=== PATIENT | female | born 1995 | race Caucasian/White ===

== ENCOUNTER 2024-07-11 12:54 | Emergency (ER) | payer BC, SELFPAY ==
[2024-07-11 13:31] VITALS: BP 128/81; PULSE 90; RESP 18; TEMP 37.1
[2024-07-11 14:33] LABS: Influenza A QL RT-PCR Positive (Negative); Influenza B QL RT-PCR Negative (Negative); RSV RNA, RT-PCR Negative (Negative); SARS-CoV-2 RNA PCR Negative (Negative)
--- NOTE | 2024-07-11 14:57 | ED_ITS ---
HPI - URI/Sore Throat General Chief Complaint: Upper Respiratory Infection Stated Complaint: Cough, dizziness, CP with cough Time Seen by Provider: 07/11/24 15:47 History of Present Illness HPI Narrative: Patient is a 29-year-old female who presents to the ER with complaints of sore throat, cough, body aches, rib cage pain, and intermittent wheezing. She reports her mother was here 3 days ago for evaluation and was also diagnosed with influenza A. Patient denies any medical history related to this ER visit. She denies any issues with urinating or constipation. Patient denies any back pain, abdominal pain, or cardiac concerns. Related Data Allergies Allergy/AdvReac Type Severity Reaction Status Date / Time No Known Allergies Allergy Verified 07/11/24 15:28 Review of Systems Review of Systems: All systems reviewed & are unremarkable except as noted in HPI and below Exam Narrative: GENERAL: Well appearing, well-nourished, non-toxic, in no acute distress. HEAD: Normocephalic, atraumatic. NECK: Supple. No adenopathy, no masses. RESPIRATORY: Airway patent, respirations nonlabored. Clear to auscultation bilaterally, no rales, rhonchi, wheezing. CARDIOVASCULAR: Regular rate and rhythm without murmurs, rubs, or gallops. Peripheral pulses 2+ and equal bilaterally. ABDOMINAL: Soft, nontender, nondistended, no hepatosplenomegaly. Normoactive BS. MUSCULOSKELETAL: Moves all extremities. Strength/ROM intact without gross deformities. SKIN: Warm, dry, normal color. No rashes. NEURO: A&O X3. Speech clear. Cranial nerves II-XII grossly intact. Steady gait. No ataxic movements. PSYCHIATRIC: Appropriate mood and affect. Normal interaction. Course Vital Signs Vital signs: Vital Signs Temperature 37.1 C 07/11/24 13:31 Pulse Rate 90 07/11/24 13:31 Respiratory Rate 18 07/11/24 13:31 Blood Pressure 128/81 07/11/24 13:31 Temperature 36.2 C L 07/11/24 15:06 Pulse Rate 93 07/11/24 15:06 Respiratory Rate 18 07/11/24 13:31 Blood Pressure 119/73 07/11/24 15:06 Pulse Oximetry 97 07/11/24 15:06 MDM - URI/Sore Throat MDM Narrative Medical decision making narrative: Patient is a 29-year-old female who presents to the ER with complaints of sore throat, cough, body aches, rib cage pain, and intermittent wheezing. She reports her mother was here 3 days ago for evaluation and was also diagnosed with influenza A. Patient denies any medical history related to this ER visit. She denies any issues with urinating or constipation. Patient denies any back pain, abdominal pain, or cardiac concerns. Labs Ordered: COVID/flu/RSV swab Imaging Ordered: None necessary Medications Ordered: None necessary Results: Influenza A positive Diagnosis: Influenza A positive Patient Education/Shared MDM: Results shared with patient. She does not require any medication administration during her ER visit. Patient strongly advised to maintain hydration status upon discharge and follow-up with her PCP. She will be discharged home with prescription for Tessalon Perles, Zofran, Ibuprofen, Claritin, Prednisone, all for supportive care. Patient is out of the 48 hour window for Tamiflu administration. Strict return precautions provided. Patient verbalized understanding is in agreement with plan. Vital signs stable at time of discharge. All questions answered. Differential Diagnosis Differential diagnosis: Likely upper respiratory infection, viral infection, bronchitis and influenza Lab Data Attestation: I reviewed the patient's lab results. Labs: Lab Results 07/11/24 Range/Units 13:35 Influenza A (RT-PCR) Positive A (Negative) Influenza B (RT-PCR) Negative (Negative) RSV (RT-PCR) Negative (Negative) SARS-CoV-2 RNA (RT-PCR) Negative (Negative) Discharge Plan Discharge Clinical Impression: Upper respiratory infection, Influenza Patient Disposition: Home, Self-Care Condition: Stable Instructions: Antibiotic Form, Influenza (ED) Additional Instructions: Please return to the ER with an worsening symptoms. Follow-up with primary care provider in the next 2-3 days. Take all medications as prescribed. Patient Language: Slovenian Prescriptions: New benzonatate 100 mg capsule 100 mg PO TID Qty: 20 0RF ondansetron 4 mg tablet,disintegrating 4 mg PO Q8H Qty: 15 0RF methylprednisolone [Medrol (Smooth)] 4 mg tablets,dose pack See Rx Instructions .ROUTE .COMPLEX Qty: 21 0RF Rx Instructions: for 6 days Claritin 10 mg tablet,chewable 10 mg PO DAILY Qty: 14 0RF ibuprofen 600 mg tablet 600 mg PO TID PRN (Reason: fever or pain) Qty: 14 0RF fluticasone propionate [Flonase Allergy Relief] 50 mcg/actuation spray,suspension 1 spray intranasal BID Qty: 16 0RF Rx Instructions: administer into each nostril Follow-up/Referrals: PHYSICIAN,COMPUTER OPERATIONS ANALYST [Non-Staff] - Stand Alone Forms: Work/School Release IP Time of Disposition: 15:32
[2024-07-11 15:06] VITALS: BP 119/73; PULSE 93; TEMP 36.2; O2SAT 97
== END 2024-07-11 16:05 | disposition home or self-care (01) ==
PROVIDERS: Preventive Medicine Aerospace Medicine; Emergency Provider Registered Nurse
DX: J10.1 Influenza due to other identified influenza virus with other respiratory manifestations (principal); Z20.822 Contact with and (suspected) exposure to COVID-19
CPT/HCPCS: 87637; 99283

== ENCOUNTER 2024-07-15 18:48 | Emergency (ER) | payer BC, SELFPAY ==
--- NOTE | ~2024-07-15 | XR_ITS ---
EXAMINATION: XR chest 2V Exam Date/Time: 07/15/2024 19:29 RETAIL DIRECTOR HISTORY: flu Comparison: None. RESULT: Lines, tubes, and devices: None. Lungs and pleura: Low volumes with crowding. Left hemidiaphragm elevation. Cardiomediastinal silhouette: Normal. Other: No acute osseous or upper abdominal finding. IMPRESSION: No acute cardiopulmonary process. Reviewed, dictated and finalized at location K. [place] DIRECTOR
[2024-07-15 19:03] VITALS: BP 102/78; PULSE 97; RESP 20; TEMP 36.4; O2SAT 99
--- NOTE | 2024-07-15 19:31 | ED.URI ---
HPI - URI/Sore Throat General Chief Complaint: Upper Respiratory Infection Stated Complaint: cough Time Seen by Provider: 07/15/24 19:14 History of Present Illness HPI Narrative: 29-year-old female presenting for repeat evaluation after being diagnosed with influenza. Patient states that most of her upper respiratory symptoms have since subsided with the treatment regimen prescribed by the previous provider. She states she still having a nagging cough and having coughing fits especially at night when she tries sleep associated some posttussive emesis. Denies any difficulty breathing or chest discomfort. No present nauseousness or vomiting. No fever chills. Related Data Allergies Allergy/AdvReac Type Severity Reaction Status Date / Time No Known Allergies Allergy Verified 07/15/24 18:50 Review of Systems Review of Systems: As reviewed above in HPI Exam Narrative: GENERAL: [Well-appearing, well-nourished, and in no acute distress.] HEAD: [Normocephalic, atraumatic.] EYES: [PERRLA and EOMI.] ENT: Nares clear, no rhinorrhea or epistaxis. Mucous membranes moist. NECK: Supple. CHEST: [Clear to auscultation. No respiratory distress.] HEART: [Regular rate and rhythm]. No murmur heard. [Normal peripheral pulses.] ABDOMEN: [Soft, nondistended], [nontender], [No rigidity or guarding] EXTREMITIES: Normal range of motion. [No edema.] SKIN: Warm, dry, no rash. NEURO: [No focal deficits]. Alert and oriented [x3.] PSYCH: [Normal mood and affect.] Course Vital Signs Vital signs: Vital Signs Temperature 36.4 C 07/15/24 19:03 Pulse Rate 97 07/15/24 19:03 Respiratory Rate 20 07/15/24 19:03 Blood Pressure 102/78 07/15/24 19:03 Pulse Oximetry 99 07/15/24 19:03 Temperature 36.4 C 07/15/24 19:03 Pulse Rate 97 07/15/24 19:03 Respiratory Rate 20 07/15/24 19:03 Blood Pressure 102/78 07/15/24 19:03 Pulse Oximetry 99 07/15/24 19:43 Oxygen Delivery Room Air 07/15/24 19:43 MDM - URI/Sore Throat MDM Narrative Medical decision making narrative: 29-year-old otherwise healthy female with recent influenza diagnosis presenting for repeat evaluation of persistent symptoms. She states most for upper respiratory infectious symptoms such as congestion, shortness of breath and Raynaud's/fever have since subsided after being treated with a combination of medications including Medrol Dosepak, Claritin, Flonase and benzonatate. She still has a persistent cough that is troublesome, causing her to have difficulty sleeping, associated with posttussive emesis. Patient has clear breath sounds, otherwise well-appearing, not any acute distress with normal vital signs. A two-view chest x-ray was obtained to evaluate for any intrathoracic process such as pneumonia or consolidation especially with her persistent symptoms and cough. She was provided Tylenol and codeine syrup as she has failed conservative therapies. Patient will be able to be discharged home after imaging studies with prescription for cough suppressant medication with instructions and regular follow-up. Medical Records Attestation: I reviewed the patient's medical records. Imaging Data Attestation: I personally reviewed and interpreted this imaging study as follows: My impression: Impressions Chest X-Ray 07/15/24 19:47 IMPRESSION: No acute cardiopulmonary process. Discharge Plan Discharge Clinical Impression: Influenza, Cough, Post-tussive vomiting Patient Disposition: Home, Self-Care Condition: Stable Instructions: Antibiotic Form, Codeine (By mouth), Influenza (ED), Acute Cough (ED) Additional Instructions: Your chest x-ray shows no pneumonia or consolidations. We will send you home with strong cough suppressant medications. Be cautious about using this when driving or operating machinery. Take this at night with nagging or intractable cough in addition to your other medications. Follow-up with regular doctor. Patient Language: Palestinian Prescriptions: New codeine-guaifenesin 10-100 mg/5 mL liquid 2.5 ml PO Q6H Qty: 120 0RF No Action benzonatate 100 mg capsule 100 mg PO TID Qty: 20 0RF ondansetron 4 mg tablet,disintegrating 4 mg PO Q8H Qty: 15 0RF methylprednisolone [Medrol (Smooth)] 4 mg tablets,dose pack See Rx Instructions .ROUTE .COMPLEX Qty: 21 0RF Rx Instructions: for 6 days Claritin 10 mg tablet,chewable 10 mg PO DAILY Qty: 14 0RF ibuprofen 600 mg tablet 600 mg PO TID PRN (Reason: fever or pain) Qty: 14 0RF fluticasone propionate [Flonase Allergy Relief] 50 mcg/actuation spray,suspension 1 spray intranasal BID Qty: 16 0RF Rx Instructions: administer into each nostril Follow-up/Referrals: PHYSICIAN,PATIENT REGISTRATION SPECIALIST [Primary Care Provider] - Time of Disposition: 19:37
[2024-07-15] MEDS: ACETAMINOPHEN/CODEINE ELIXIR (*CRX) 120-12 MG/5 ML UDC PO (19:42)
[2024-07-15 19:43] VITALS: O2SAT 99
== END 2024-07-15 20:09 | disposition home or self-care (01) ==
PROVIDERS: Emergency Provider Student in an Organized Health Care Education/Training Program
DX: J11.1 Influenza due to unidentified influenza virus with other respiratory manifestations (principal); R11.10 Vomiting, unspecified; R05.9 Cough, unspecified
CPT/HCPCS: 71046; 99283; A9270

== ENCOUNTER 2024-09-07 23:41 | Emergency (ER) | payer BC, SELFPAY ==
--- NOTE | ~2024-09-07 | CT_ITS ---
Clinical Indication: Shortness of breath CT Scan of the Chest with Contrast: Technique: Contiguous sections were acquired throughout the chest after intravenous administration of 100 cc of Omnipaque 350. Dose reduction technique was used on this scan by utilizing automated expos ure control and iterative reconstruction technique. The dose-length product (DLP) was 839.74 mGy-cm. Findings: There is no evidence of any significant mediastinal, hilar or axillary lymphadenopathy. Residual thym ic tissue noted in the anterior mediastinum. There is no filling defect in the pulmonary arterial mamta e to suggest pulmonary embolus. There is no evidence of aortic dissection or aneurysm. There is no evidence of pleural or pericardial effusion. 3 mm right upper lobe pulmonary nodule present (axial image 48). 2 mm right middle lobe nodule presen t (axial image 76). 2 mm pleural-based nodules are present in left lower lobe (axial image 76). Images through the upper abdomen reveal no abnormalities. Impression: No evidence of pulmonary embolus, aortic dissection, or aortic aneurysm. Tiny pulmonary nodules, as above, most likely benign. According to Fleischner Society criteria, for a low-risk patient, no further follow-up required. For a high-risk patient, consider 12 month follow-u p CT. Reviewed, dictated and finalized at location M. Impression: No evidence of pulmonary embolus, aortic dissection, or aortic aneurysm. Tiny pulmonary nodules, as above, most likely benign. According to Fleischner S ociety criteria, for a low-risk patient, no further follow-up required. For a h igh-risk patient, consider 12 month follow-up CT.
[2024-09-07 23:43] VITALS: BP 118/59; PULSE 77; RESP 15; TEMP 36.1; O2SAT 97
--- NOTE | 2024-09-08 00:51 | ED_ITS ---
HPI - General Adult General Chief complaint: Unspecified <Aviva Vega APRN - Last Filed: 09/08/24 03:17> Stated complaint: CT to eval lung nodule <Aviva Vega APRN - Last Filed: 09/08/24 03:17> Time Seen by Provider: 09/08/24 00:23 <Aviva Vega APRN - Last Filed: 09/08/24 03:17> History of Present Illness HPI narrative: Patient is a 29-year-old female who presents to the ER with a 3 day history of cough, intermittent wheezing, chest pain, and mild shortness of breath. Patient reports she went to [facility] earlier today and they did chest x- ray. She reports they told her she may have a lung nodule and that she should go to the ER for a CT scan. Patient denies any recent fevers, acute back pain, abdominal pain. She denies any cigarette smoking, alcohol use, or drug use. Patient denies any medical history relevant this ER visit. <Aviva Vega APRN - Last Filed: 09/08/24 03:17> Related Data Allergies/adverse reactions: Allergies Allergy/AdvReac Type Severity Reaction Status Date / Time No Known Allergies Allergy Verified 09/07/24 23:43 <Aviva Vega APRN - Last Filed: 09/08/24 03:17> Review of Systems 2 Review of Systems: All systems reviewed & are unremarkable except as noted in HPI and below <Aviva Vega APRN - Last Filed: 09/08/24 03:17> Exam 2 Narrative: GENERAL: Well appearing, well-nourished, non-toxic, in no acute distress. HEAD: Normocephalic, atraumatic. NECK: Supple. No adenopathy, no masses. RESPIRATORY: Airway patent, respirations nonlabored. Clear to auscultation bilaterally, no rales, rhonchi, wheezing. CARDIOVASCULAR: Regular rate and rhythm without murmurs, rubs, or gallops. Peripheral pulses 2+ and equal bilaterally. ABDOMINAL: Soft, nontender, nondistended, no hepatosplenomegaly. Normoactive BS. MUSCULOSKELETAL: Moves all extremities. Strength/ROM intact without gross deformities. SKIN: Warm, dry, normal color. No rashes. NEURO: A&O X3. Speech clear. Cranial nerves II-XII intact. No ataxic movements. PSYCHIATRIC: Appropriate mood and affect. Normal interaction. <Aviva Vega APRN - Last Filed: 09/08/24 03:17> Course ROCK DRILL OPERATOR/PA Physician Supervision Patient signed out to me by previous provider pending CT angiography. CT angiography was independently red and also interpreted by Radiology. No evidence of PE, no consolidation pleural effusion or pneumothorax. She has a left lower lobe subpleural nodule measuring 4 mm. She was made aware of this and will need to follow-up with primary care provider regarding this result. Hemodynamically stable. Workup unremarkable. Negative troponin. Safe for discharge. <Luke Osorio MD - Last Filed: 09/08/24 04:01> Vital Signs Vital signs: Vital Signs Temperature 36.1 C L 09/07/24 23:43 Pulse Rate 77 09/07/24 23:43 Respiratory Rate 15 09/07/24 23:43 Blood Pressure 118/59 L 09/07/24 23:43 Pulse Oximetry 97 09/07/24 23:43 Oxygen Delivery Room Air 09/07/24 23:43 Temperature 36.1 C L 09/07/24 23:43 Pulse Rate 77 09/07/24 23:43 Respiratory Rate 16 09/08/24 00:57 Blood Pressure 118/59 L 09/07/24 23:43 Pulse Oximetry 100 09/08/24 00:57 Oxygen Delivery Room Air 09/07/24 23:43 <Aviva Vega APRN - Last Filed: 09/08/24 03:17> Vital Signs Temperature 36.1 C L 09/07/24 23:43 Pulse Rate 77 09/07/24 23:43 Respiratory Rate 15 09/07/24 23:43 Blood Pressure 118/59 L 09/07/24 23:43 Pulse Oximetry 97 09/07/24 23:43 Oxygen Delivery Room Air 09/07/24 23:43 Temperature 36.1 C L 09/07/24 23:43 Pulse Rate 77 09/07/24 23:43 Respiratory Rate 16 09/08/24 00:57 Blood Pressure 118/59 L 09/07/24 23:43 Pulse Oximetry 100 09/08/24 00:57 Oxygen Delivery Room Air 09/07/24 23:43 <Luke Osorio MD - Last Filed: 09/08/24 04:01> Medical Decision Making [facility] Narrative Medical decision making narrative: Patient is a 29-year-old female who presents to the ER with a 3 day history of cough, intermittent wheezing, chest pain, and mild shortness of breath. Patient reports she went to [facility] earlier today and they did chest x- ray. She reports they told her she may have a lung nodule and that she should go to the ER for a CT scan. Patient denies any recent fevers, acute back pain, abdominal pain. She denies any cigarette smoking, alcohol use, or drug use. Patient denies any medical history relevant this ER visit. Labs Ordered: CBC, CMP, troponin Imaging Ordered: CTA PE scan Medications Ordered: None necessary Diagnosis: cough, upper respiratory infection Risks: HEART score: low risk HEART Score for Major Cardiac Events from [employer] on 09/07/2024 All calculations should be rechecked by clinician prior to use RESULT SUMMARY: 0 points Low Score (0-3 points) Risk of MACE of 0.9-1.7%. INPUTS: History ?> 0 = Slightly suspicious EKG ?> 0 = Normal Age ?> 0 = <45 Risk factors ?> 0 = No known risk factors Initial troponin ?> 0 = <=Normal limit Patient Education/Shared MDM: 0315- Care signed out to Dr. Osorio. Results shared with patient. Patient strongly advised to maintain hydration status upon discharge and follow-up with her PCP as soon as possible. She will be discharged home with a prescription for Tessalon Pearles, Medrol Dose Pack, and an albuterol inhaler. Strict return precautions provided. Patient verbalized understanding and is in agreement with plan. Vital signs stable at time of discharge. All questions answered. <Aviva Vega APRN - Last Filed: 09/08/24 03:17> Vital Signs Vital Signs: Vital Signs Temperature 36.1 C L 09/07/24 23:43 Pulse Rate 77 09/07/24 23:43 Respiratory Rate 15 09/07/24 23:43 Blood Pressure 118/59 L 09/07/24 23:43 Pulse Oximetry 97 09/07/24 23:43 Oxygen Delivery Room Air 09/07/24 23:43 Temperature 36.1 C L 09/07/24 23:43 Pulse Rate 77 09/07/24 23:43 Respiratory Rate 16 09/08/24 00:57 Blood Pressure 118/59 L 09/07/24 23:43 Pulse Oximetry 100 09/08/24 00:57 Oxygen Delivery Room Air 09/07/24 23:43 <Aviva Vega APRN - Last Filed: 09/08/24 03:17> Vital Signs Temperature 36.1 C L 09/07/24 23:43 Pulse Rate 77 09/07/24 23:43 Respiratory Rate 15 09/07/24 23:43 Blood Pressure 118/59 L 09/07/24 23:43 Pulse Oximetry 97 09/07/24 23:43 Oxygen Delivery Room Air 09/07/24 23:43 Temperature 36.1 C L 09/07/24 23:43 Pulse Rate 77 09/07/24 23:43 Respiratory Rate 16 09/08/24 00:57 Blood Pressure 118/59 L 09/07/24 23:43 Pulse Oximetry 100 09/08/24 00:57 Oxygen Delivery Room Air 09/07/24 23:43 <Luke Osorio MD - Last Filed: 09/08/24 04:01> Lab Data Lab results reviewed: Yes I reviewed the patient's lab results. <Aviva Vega APRN - Last Filed: 09/08/24 03:17> Result diagrams: 09/08/24 01:09 09/08/24 01:09 <Aviva Vega APRN - Last Filed: 09/08/24 03:17> Labs: Lab Results 09/08/24 09/08/24 09/08/24 Range/Units 01:09 02:54 03:20 WBC 9.5 (4.5-10.0) K/mm3 RBC 4.38 (4.2-5.4) M/mm3 Hgb 12.9 (12.0-15.0) g/dL Hct 38.9 (37.0-47.0) % MCV 88.8 (80-100) fl MCH 29.5 (26-34) pg MCHC 33.2 (32-36) g/dl RDW 12.2 (11.5-14.5) % Plt Count 309 (150-375) k/mm3 MPV 9.0 (7.4-10.4) fl Immature Gran % (Auto) 0.3 (0-0.5) % Neut % (Auto) 64.5 (45.5-73.1) % Lymph % (Auto) 25.8 (18.3-44.2) % [place] % (Auto) 5.7 (2.6-8.5) % Eos % (Auto) 3.2 (0-4.4) % Baso % (Auto) 0.5 (0.2-1.2) % Lymph # (Auto) 2.46 (0.9-3.2) K/mm3 [place] # (Auto) 0.5 (0.1-0.6) K/mm3 Eos # (Auto) 0.3 (0-0.3) K/mm3 Baso # (Auto) 0.1 (0.0-0.1) K/mm3 Abs Immat Gran (auto) 0.03 (0.00-0.031) K/mm3 Absolute Neuts (auto) 6.2 (1.3-6.7) K/mm3 Absolute Nucleated RBC 0.000 (0.0-0.012) K/mm3 Nucleated RBC % 0.0 (0.0-0.2) % Sodium 140 (137-145) mmol/L Potassium 3.7 (3.4-5.0) mmol/L Chloride 105 (98-107) mmol/L Carbon Dioxide 25 (22-30) mmol/L Anion Gap 10 (4-12) mmol/L BUN 12 (7-17) mg/dL Creatinine 0.58 L (0.7-1.0) mg/dL Estim Creat Clear Calc 148 ml/min Estimated GFR > 60 (59 - ) Glucose 151 H (65-110) mg/dL Calcium 8.6 (8.4-10.2) mg/dL Total Bilirubin 0.3 (0.2-1.3) mg/dL AST 20 (14-36) U/L ALT 20 (6-35) U/L Alkaline Phosphatase 109 (38-126) U/L Troponin I < 0.012 < 0.012 (0.000-0.034) ng/mL Total Protein 7.0 (6.3-8.2) g/dL Albumin 4.1 (3.5-5.1) g/dL POC Urine HCG, Qual Negative (Negative) <Aviva Douglas Vega, TELEPHONE TRIAGE NURSE - Last Filed: 09/08/24 03:17> Lab Results 09/08/24 09/08/24 09/08/24 Range/Units 01:09 02:54 03:20 WBC 9.5 (4.5-10.0) K/mm3 RBC 4.38 (4.2-5.4) M/mm3 Hgb 12.9 (12.0-15.0) g/dL Hct 38.9 (37.0-47.0) % MCV 88.8 (80-100) fl MCH 29.5 (26-34) pg MCHC 33.2 (32-36) g/dl RDW 12.2 (11.5-14.5) % Plt Count 309 (150-375) k/mm3 MPV 9.0 (7.4-10.4) fl Immature Gran % (Auto) 0.3 (0-0.5) % Neut % (Auto) 64.5 (45.5-73.1) % Lymph % (Auto) 25.8 (18.3-44.2) % [place] % (Auto) 5.7 (2.6-8.5) % Eos % (Auto) 3.2 (0-4.4) % Baso % (Auto) 0.5 (0.2-1.2) % Lymph # (Auto) 2.46 (0.9-3.2) K/mm3 [place] # (Auto) 0.5 (0.1-0.6) K/mm3 Eos # (Auto) 0.3 (0-0.3) K/mm3 Baso # (Auto) 0.1 (0.0-0.1) K/mm3 Abs Immat Gran (auto) 0.03 (0.00-0.031) K/mm3 Absolute Neuts (auto) 6.2 (1.3-6.7) K/mm3 Absolute Nucleated RBC 0.000 (0.0-0.012) K/mm3 Nucleated RBC % 0.0 (0.0-0.2) % Sodium 140 (137-145) mmol/L Potassium 3.7 (3.4-5.0) mmol/L Chloride 105 (98-107) mmol/L Carbon Dioxide 25 (22-30) mmol/L Anion Gap 10 (4-12) mmol/L BUN 12 (7-17) mg/dL Creatinine 0.58 L (0.7-1.0) mg/dL Estim Creat Clear Calc 148 ml/min Estimated GFR > 60 (59 - ) Glucose 151 H (65-110) mg/dL Calcium 8.6 (8.4-10.2) mg/dL Total Bilirubin 0.3 (0.2-1.3) mg/dL AST 20 (14-36) U/L ALT 20 (6-35) U/L Alkaline Phosphatase 109 (38-126) U/L Troponin I < 0.012 < 0.012 (0.000-0.034) ng/mL Total Protein 7.0 (6.3-8.2) g/dL Albumin 4.1 (3.5-5.1) g/dL POC Urine HCG, Qual Negative (Negative) <Luke Osorio MD - Last Filed: 09/08/24 04:01> Discharge Plan Discharge Clinical Impression: Upper respiratory infection, Cough, Pleural nodule <Aviva Vega APRN - Last Filed: 09/08/24 03:17> Patient Disposition: Home, Self-Care <Aviva Vega APRN - Last Filed: 09/08/24 03:17> Condition: Stable <Aviva Vega APRN - Last Filed: 09/08/24 03:17> Instructions: Antibiotic Form, Viral Syndrome (ED) <Aviva Vega APRN - Last Filed: 09/08/24 03:17> Additional Instructions: Your CT scan shows a left lower lobe 4 mm subpleural nodule. This is an incidental finding, no signs of blood clots, pneumonia, lung damage otherwise. You will need to follow-up with a primary care provider to surveillance this or provide referral to pulmonology if needed. This is unlikely related to any symptoms you are experiencing at this time. Please return to the ER with any worsening symptoms. Follow-up with primary care provider as soon as possible. Take all medications as prescribed, including regularly scheduled medications. <Aviva Vega APRN - Last Filed: 09/08/24 03:17> Patient Language: Estonian <Aviva Vega APRN - Last Filed: 09/08/24 03:17> Prescriptions: New benzonatate 100 mg capsule 100 mg PO TID Qty: 14 0RF methylprednisolone [Medrol (Smooth)] 4 mg tablets,dose pack See Rx Instructions .ROUTE .COMPLEX Qty: 21 0RF Rx Instructions: for 6 days albuterol sulfate [Ventolin HFA] 90 mcg/actuation HFA aerosol inhaler 1 inh inhalation QID PRN (Reason: shortness of breath or wheezing) Qty: 6.7 0RF No Action benzonatate 100 mg capsule 100 mg PO TID Qty: 20 0RF ondansetron 4 mg tablet,disintegrating 4 mg PO Q8H Qty: 15 0RF methylprednisolone [Medrol (Smooth)] 4 mg tablets,dose pack See Rx Instructions .ROUTE .COMPLEX Qty: 21 0RF Rx Instructions: for 6 days Claritin 10 mg tablet,chewable 10 mg PO DAILY Qty: 14 0RF ibuprofen 600 mg tablet 600 mg PO TID PRN (Reason: fever or pain) Qty: 14 0RF fluticasone propionate [Flonase Allergy Relief] 50 mcg/actuation spray,suspension 1 spray intranasal BID Qty: 16 0RF Rx Instructions: administer into each nostril codeine-guaifenesin 10-100 mg/5 mL liquid 2.5 ml PO Q6H Qty: 120 0RF <Aviva Vega APRN - Last Filed: 09/08/24 03:17> Follow-up/Referrals: PHYSICIAN,SALES CLERK SUPERVISOR [Primary Care Provider] - Lm Moore MD [Physician] - 1 Week (Establish PCP) <Aviva Vega APRN - Last Filed: 09/08/24 03:17> Time of Disposition: 04:01 <Aviva Vega APRN - Last Filed: 09/08/24 03:17> 04:01 <Luke Osorio MD - Last Filed: 09/08/24 04:01>
[2024-09-08 00:57] VITALS: RESP 16; O2SAT 100
[2024-09-08 01:15] LABS: Basophils Absolute Auto 0.1 K/mm3 (0.0-0.1); Basophils Percent Auto 0.5 % (0.2-1.2); Eosinophils Absolute Auto 0.3 K/mm3 (0-0.3); Eosinophils Percent Auto 3.2 % (0-4.4); Hematocrit 38.9 % (37.0-47.0); Hemoglobin 12.9 g/dL (12.0-15.0); Immature Granulocyte Absolute 0.03 K/mm3 (0.00-0.031); Immature Granulocyte Percent A 0.3 % (0-0.5); Lymphocytes Absolute Auto 2.46 K/mm3 (0.9-3.2); Lymphocytes Percent Auto 25.8 % (18.3-44.2); Mean Corpuscular HGB Conc 33.2 g/dl (32-36); Mean Corpuscular Hemoglobin 29.5 pg (26-34); Mean Corpuscular Volume 88.8 fl (80-100); Monocytes Absolute Auto 0.5 K/mm3 (0.1-0.6); Monocytes Percent Auto 5.7 % (2.6-8.5); Neutrophils Absolute Auto 6.2 K/mm3 (1.3-6.7); Neutrophils Percent Auto 64.5 % (45.5-73.1); Platelet Count Result 309 k/mm3 (150-375); Red Blood Count 4.38 M/mm3 (4.2-5.4); Red Cell Distribution Width 12.2 % (11.5-14.5); White Blood Count 9.5 K/mm3 (4.5-10.0)
[2024-09-08 01:35] LABS: Alanine Aminotransferase 20 U/L (6-35); Albumin Level 4.1 g/dL (3.5-5.1); Alkaline Phosphatase 109 U/L (38-126); Anion Gap 10 mmol/L (4-12); Aspartate Amino Transferase 20 U/L (14-36); Bilirubin,Total 0.3 mg/dL (0.2-1.3); Blood Urea Nitrogen 12 mg/dL (7-17); Calcium 8.6 mg/dL (8.4-10.2); Carbon Dioxide 25 mmol/L (22-30); Chloride 105 mmol/L (98-107); Estimated CRCL calculation 148 ml/min; Estimated Glomerular Filt Rate > 60; Glucose 151 mg/dL (65-110); Potassium 3.7 mmol/L (3.4-5.0); Sodium 140 mmol/L (137-145)
[2024-09-08 01:45] LABS: Troponin I < 0.012 ng/mL (0.000-0.034)
[2024-09-08 02:56] LABS: BEDSIDEPREGUCG Negative (Negative)
[2024-09-08 03:53] LABS: Troponin I < 0.012 ng/mL (0.000-0.034)
[2024-09-08 04:26] VITALS: BP 117/69; PULSE 71; RESP 18; O2SAT 100
== END 2024-09-08 04:26 | disposition home or self-care (01) ==
PROVIDERS: Emergency Provider Registered Nurse
DX: J06.9 Acute upper respiratory infection, unspecified (principal); R91.1 Solitary pulmonary nodule
CPT/HCPCS: 36415; 71275; 80053; 81025; 84484; 85025; 99284; Q9967

== ENCOUNTER 2025-02-09 16:31 | Emergency (ER) | payer BC, SELFPAY ==
[2025-02-09 16:33] VITALS: BP 125/61; PULSE 72; RESP 20; TEMP 36.1; O2SAT 100
[2025-02-09 17:12] LABS: BEDSIDEPREGUCG Negative (Negative)
[2025-02-09 17:15] LABS: Hematocrit 40.5 % (37.0-47.0); Hemoglobin 12.9 g/dL (12.0-15.0); Immature Granulocyte Percent A 0.2 % (0-0.5); Lymphocytes Absolute Auto 1.75 K/mm3 (0.9-3.2); Mean Corpuscular HGB Conc 31.9 g/dl (32-36); Mean Corpuscular Hemoglobin 28.7 pg (26-34); Mean Corpuscular Volume 90.2 fl (80-100); Nucleated Red Blood Cells Absolute Auto 0.000 K/mm3 (0.0-0.012); Nucleated Red Blood Cells Perc 0.0 % (0.0-0.2); Platelet Count Result 305 k/mm3 (150-375); Red Blood Count 4.49 M/mm3 (4.2-5.4); White Blood Count 8.3 K/mm3 (4.5-10.0)
[2025-02-09 17:22] LABS: Add Urine Microscopic? YES; Glucose Urine UA Negative (Negative); Leukocyte Esterase Ur 1+ LEU/UL (Negative); Nitrate Urine Negative (Negative); Non Pathogenic Casts 0-2; Specific Grav Ur 1.021 (1.001-1.035)
[2025-02-09 17:24] LABS: Appearance Urine Clear (Clear)
[2025-02-09 17:45] LABS: Alanine Aminotransferase 20 U/L (6-35); Albumin Level 4.1 g/dL (3.5-5.1); Alkaline Phosphatase 119 U/L (38-126); Anion Gap 6 mmol/L (4-12); Aspartate Amino Transferase 30 U/L (14-36); Bilirubin,Total 0.7 mg/dL (0.2-1.3); Blood Urea Nitrogen 10 mg/dL (7-17); Calcium 8.9 mg/dL (8.4-10.2); Carbon Dioxide 28 mmol/L (22-30); Chloride 105 mmol/L (98-107); Estimated CRCL calculation 126 ml/min; Estimated Glomerular Filt Rate > 60; Glucose 121 mg/dL (65-110); Lipase 65 U/L (23-300); Potassium 3.6 mmol/L (3.4-5.0); Sodium 139 mmol/L (137-145); Total Protein 7.5 g/dL (6.3-8.2)
--- NOTE | 2025-02-09 18:14 | ED_ITS ---
HPI - Abdominal Pain General Chief Complaint: Abdominal Pain Stated Complaint: abdominal pain, vomiting Time Seen by Provider: 02/09/25 17:44 Source: patient Mode of arrival: ambulatory Limitations: no limitations History of Present Illness HPI narrative: Patient presents with epigastric abdominal pain of 2 days duration associated wiwth nausea, vomiting, and a little diarrhea. 6 episodes of emesis overnight, 4 thoughout the day and 2-3 today. Symptoms developed after she and her had to dig through the trash to look for a purse/wallet that had accidentally been thrown away, though she washed her hands thoroughly. Had a headache yesterday. SORAIDA 2 hours ago. Has an appetite. Denies any dysuria, hematuria, urgency/frequency. Has been around her dad and brother who have been sick although not tested. Yesterday febrile with temp 101.0. No chills. this has never happened before, does not follow with gastroenterology. No recent travel or antibiotics. Yesterday took [place], also trying Advil. LMP 1 year ago (Nexplanon). LBM today . No bloody stool. Was seen at Urgent Care in [place] 1 week ago with concern for a UTI because she had been having urinary symptoms at that time. Told it didn't appear so but then later told possibly, prescribed antibiotics (which patient did not fill Rx for/start taking). No vaginal bleeding. CLear normal vaginal discharge. Patient initially denies any abdominal surgeries although upon review, she does note that she is status post appendectomy. DOes not have a PCP. Related Data Allergies Allergy/AdvReac Type Severity Reaction Status Date / Time No Known Allergies Allergy Verified 02/09/25 16:32 [facility] Surgical History Surgical History Hx of appendectomy Family History Family History Father No problems noted. Sibling No problems noted. Social History Social History (Updated 02/14/25 @ 15:16 by Natalee Lawton MD) Living arrangements: with family Exam 2 Narrative: GENERAL: Well-appearing, well-nourished, and in no acute distress. HEAD: Normocephalic, atraumatic. EYES: Non injected, non icteric ENT: Nares clear, no rhinorrhea or epistaxis. Gross auditory acuity intact. NECK: Supple. No meningismus. CHEST: Speaking in full sentences. No respiratory distress. HEART: Regular rate and rhythm. . ABDOMEN: Soft, nondistended. No rigidity or guarding. Not peritoneal. Muhammad sign negative. Mild TTP of epigastrium. EXTREMITIES: Normal range of motion. No lower extremity edema. SKIN: Warm, dry, no rash. NEURO: No focal deficits. Alert and oriented. Answering questions. Following commands. Normal speech without aphasia or dysarthria. PSYCH: Normal mood and affect. Course Vital Signs Vital signs: Vital Signs Temperature 97.0 F L 02/09/25 16:33 Pulse Rate 72 02/09/25 16:33 Respiratory Rate 20 02/09/25 16:33 Blood Pressure 125/61 02/09/25 16:33 Pulse Oximetry 100 02/09/25 16:33 Oxygen Delivery Room Air 02/09/25 16:33 Temperature 98.4 F 02/09/25 19:20 Pulse Rate 61 02/09/25 19:20 Respiratory Rate 18 02/09/25 19:20 Blood Pressure 113/58 L 02/09/25 19:20 Pulse Oximetry 99 02/09/25 19:20 Oxygen Delivery Room Air 02/09/25 16:33 MDM - Abdominal Pain MDM Narrative Medical decision making narrative: Patient presents with epigastric abdominal pain, nausea, vomiting, and a little diarrhea. In the emergency department they are afebrile with vital signs within normal limits. test negative. Lipase within normal limits. Patient's urine does have bacteriuria however with a number of squamous cells. Given this it does not automatically to reflex to culture. She otherwise denies any symptoms currently but because she had been seen at urgent care for symptoms 1 week ago , reasonable to defer antibiotics at this time but obtain culture. Shilpi ordered and I called lab to ensure they would process this order. Patient is reassessed at approximately 7:30 p.m.. She reports feeling much better. We discussed gastroenteritis and this likely being viral although with a negative viral swab. We also discussed her abnormal urinalysis and the reason for deferring antibiotics at this time. If urine culture is positive, she will proceed with following through on picking up the antibiotic prescription that was prescribed by urgent care. provided referral contact info for a PCP and Rx for Zofran. Otherwise stable for DC. Differential Diagnosis Differential diagnosis: Likely abdominal pain, constipation, diverticulitis, endometriosis, gastroenteritis, pancreatitis and other (; gastritis; gerd; acute viral syndrome; biliary pathology) Lab Data Attestation: I reviewed the patient's lab results. Lab results narrative: Normal renal function. No marked electrolyte abnormalities. CBC without marked abnormalities only mild on the differential 02/09/25 17:08 02/09/25 17:08 Labs: Lab Results 02/09/25 02/09/25 Range/Units 17:08 18:45 WBC 8.3 (4.5-10.0) K/mm3 RBC 4.49 (4.2-5.4) M/mm3 Hgb 12.9 (12.0-15.0) g/dL Hct 40.5 (37.0-47.0) % MCV 90.2 (80-100) fl MCH 28.7 (26-34) pg MCHC 31.9 L (32-36) g/dl RDW 12.5 (11.5-14.5) % Plt Count 305 (150-375) k/mm3 MPV 9.3 (7.4-10.4) fl Immature Gran % (Auto) 0.2 (0-0.5) % Neut % (Auto) 71.5 (45.5-73.1) % Lymph % (Auto) 21.0 (18.3-44.2) % [place] % (Auto) 4.3 (2.6-8.5) % Eos % (Auto) 2.4 (0-4.4) % Baso % (Auto) 0.6 (0.2-1.2) % Lymph # (Auto) 1.75 (0.9-3.2) K/mm3 [place] # (Auto) 0.4 (0.1-0.6) K/mm3 Eos # (Auto) 0.2 (0-0.3) K/mm3 Baso # (Auto) 0.1 (0.0-0.1) K/mm3 Abs Immat Gran (auto) 0.02 (0.00-0.031) K/mm3 Absolute Neuts (auto) 6.0 (1.3-6.7) K/mm3 Absolute Nucleated RBC 0.000 (0.0-0.012) K/mm3 Nucleated RBC % 0.0 (0.0-0.2) % Sodium 139 (137-145) mmol/L Potassium 3.6 (3.4-5.0) mmol/L Chloride 105 (98-107) mmol/L Carbon Dioxide 28 (22-30) mmol/L Anion Gap 6 (4-12) mmol/L BUN 10 (7-17) mg/dL Creatinine 0.69 L (0.7-1.0) mg/dL Estim Creat Clear Calc 126 ml/min Estimated GFR > 60 (59 - ) Glucose 121 H (65-110) mg/dL Calcium 8.9 (8.4-10.2) mg/dL Total Bilirubin 0.7 (0.2-1.3) mg/dL AST 30 (14-36) U/L ALT 20 (6-35) U/L Alkaline Phosphatase 119 (38-126) U/L Total Protein 7.5 (6.3-8.2) g/dL Albumin 4.1 (3.5-5.1) g/dL Lipase 65 (23-300) U/L Urine Color Yellow (Yellow) Urine Appearance Clear (Clear) Urine pH 5.0 (5.0-9.0) Ur Specific [place] 1.021 (1.001-1.035) Urine Protein Negative (Negative) mg/dL Urine Glucose (UA) Negative (Negative) mg/dL Urine Ketones Negative (Negative) mg/dL Ur Blood (Man) Negative (Negative) Urine Nitrate Negative (Negative) Urine Bilirubin Negative (Negative) Urine Urobilinogen 0.2 (<2.0) mg/dL Leukocyte Esterase Rfl 1+ H (Negative) RAÚL/UL Urine RBC 0-2 (0-2) /hpf Urine WBC 6-10 H (0-3) /hpf Ur Squamous Epith Cells Many H (Few) /hpf Urine Bacteria 1+ H /hpf Urine Casts 0-2 POC Urine HCG, Qual Negative (Negative) Influenza A (RT-PCR) Negative (Negative) Influenza B (RT-PCR) Negative (Negative) SARS-CoV-2 RNA (RT-PCR) Negative (Negative) Discharge Plan Discharge Clinical Impression: Epigastric abdominal pain, Gastroenteritis, Abnormal urinalysis Patient Disposition: Home Condition: Stable Instructions: Antibiotic Form, Gastroenteritis (ED), Acute Nausea and Vomiting (DC), Acute Diarrhea (ED), Epigastric Pain (ED) Additional Instructions: As we discussed, Your symptoms sound consistent with gastroenteritis which is typically viral although you tested negative for COVID and influenza. Oral disintegrating tablets of Zofran/ondansetron have been prescribed which can help with the nausea/vomiting. Rest and maintain your hydration. Follow-up with your primary care physician. Because you do not have 1, the name of a doctor is listed below. Alternatively, there is a provider that speaks Martiniquais if you prefer though I do not know if they are accepting patients. Her name is Rosa Elena Brown ([phone]). Return to the emergency department with any new or worsening symptoms. As we discussed, your urinalysis was slightly abnormal. If the culture which is in process is positive, you can go ahead and proceed with filling a prescription for antibiotics that were prescribed by the urgent care. Patient Language: Indonesian Prescriptions: New ondansetron 4 mg tablet,disintegrating 4 mg PO Q8H PRN (Reason: nausea and vomiting) Qty: 7 0RF No Action benzonatate 100 mg capsule 100 mg PO TID Qty: 14 0RF methylprednisolone [Medrol (Smooth)] 4 mg tablets,dose pack See Rx Instructions .ROUTE .COMPLEX Qty: 21 0RF Rx Instructions: for 6 days albuterol sulfate [Ventolin HFA] 90 mcg/actuation HFA aerosol inhaler 1 inh inhalation QID PRN (Reason: shortness of breath or wheezing) Qty: 6.7 0RF benzonatate 100 mg capsule 100 mg PO TID Qty: 20 0RF ondansetron 4 mg tablet,disintegrating 4 mg PO Q8H Qty: 15 0RF methylprednisolone [Medrol (Smooth)] 4 mg tablets,dose pack See Rx Instructions .ROUTE .COMPLEX Qty: 21 0RF Rx Instructions: for 6 days Claritin 10 mg tablet,chewable 10 mg PO DAILY Qty: 14 0RF ibuprofen 600 mg tablet 600 mg PO TID PRN (Reason: fever or pain) Qty: 14 0RF fluticasone propionate [Flonase Allergy Relief] 50 mcg/actuation spray,suspension 1 spray intranasal BID Qty: 16 0RF Rx Instructions: administer into each nostril codeine-guaifenesin 10-100 mg/5 mL liquid 2.5 ml PO Q6H Qty: 120 0RF Follow-up/Referrals: Louann Hinton MD [Physician, Family Practice] PHYSICIAN,COPIER OPERATOR [Primary Care Provider, Internal Medicine] Stand Alone Forms: Work/School Release IP Time of Disposition: 19:39
[2025-02-09] MEDS: ONDANSETRON INJ 4 MG/2 ML VIAL IV PUSH (18:57)
[2025-02-09] MEDS: BELLADONNA ALK/PHENOB ELIX 10 ML, MAG HYDROX/ALUMINUM HYD/SIMETH 30 ML, LIDOCAINE 2% VI... PO (18:58)
[2025-02-09 19:20] VITALS: BP 113/58; PULSE 61; RESP 18; TEMP 36.9; O2SAT 99
[2025-02-09 19:25] LABS: Influenza A QL RT-PCR Negative (Negative); Influenza B QL RT-PCR Negative (Negative); SARS-CoV-2 RNA PCR Negative (Negative)
--- NOTE | 2025-02-09 19:36 | PC.NURSE ---
Received report from NATALIE Maynard for cont. of care. Pt AOx4, sitting on stretcher respirations even and unlabored. Pt denies nausea and/or discomfort at this time. Pt provided with water for PO challenge. Pt appears in NAD, VS WNL
== END 2025-02-09 20:07 | disposition home or self-care (01) ==
PROVIDERS: Emergency Medicine; Emergency Provider Student in an Organized Health Care Education/Training Program
DX: K52.9 Noninfective gastroenteritis and colitis, unspecified (principal); R82.998 Other abnormal findings in urine; Z20.822 Contact with and (suspected) exposure to COVID-19
CPT/HCPCS: 36415; 80053; 81001; 81025; 83690; 85025; 87086; 87636; 96374; 99284; A9270; J2405

== ENCOUNTER 2025-02-27 23:34 | Emergency (ER) | payer BC, SELFPAY ==
--- NOTE | ~2025-02-27 | XR_ITS ---
Examination: XR chest 2V Clinical History: Chest pain Comparison: CTA chest 09/08/2024 Technique: PA and Lateral Findings: Cardiomediastinal silhouette normal size and configuration. Lungs clear. No acute bony abnormality. IMPRESSION: 1. No acute cardiopulmonary findings. Reviewed, dictated and finalized at location R.
--- NOTE | 2025-02-27 23:36 | ECG_ITS ---
Test Date: 2025-02-27 23:40:40 Measurements Intervals [place] Rate: 61 P: 11 KS: 162 QRS: 51 QRSD: 107 T: 30 QT: 376 QTc: 381 Interpretive Statements SINUS RHYTHM NORMAL ELECTROCARDIOGRAM No previous ECG available for comparison Electronically Signed On 02-28-2025 07:32:15 CDT by Von Underwood M.D.
[2025-02-27 23:46] VITALS: BP 118/47; PULSE 74; RESP 16; TEMP 36.9; O2SAT 97
[2025-02-28 00:05] LABS: Alanine Aminotransferase 17 U/L (6-35); Albumin Level 4.2 g/dL (3.5-5.1); Alkaline Phosphatase 121 U/L (38-126); Anion Gap 10 mmol/L (4-12); Aspartate Amino Transferase 22 U/L (14-36); Bilirubin,Total 0.3 mg/dL (0.2-1.3); Blood Urea Nitrogen 14 mg/dL (7-17); Calcium 8.6 mg/dL (8.4-10.2); Carbon Dioxide 20 mmol/L (22-30); Chloride 107 mmol/L (98-107); Estimated CRCL calculation 131 ml/min; Estimated Glomerular Filt Rate > 60; Glucose 101 mg/dL (65-110); INR 1.0; Lipase 82 U/L (23-300); Potassium 4.3 mmol/L (3.4-5.0); Prothrombin Time 13.4 Seconds (11.1-14.7); Sodium 137 mmol/L (137-145); Total Protein 7.8 g/dL (6.3-8.2)
[2025-02-28 00:06] LABS: Partial Thromboplastin Time 27.2 Seconds (22.3-36.8)
[2025-02-28 00:09] LABS: Hematocrit 39.9 % (37.0-47.0); Hemoglobin 13.2 g/dL (12.0-15.0); Immature Granulocyte Percent A 0.4 % (0-0.5); Lymphocytes Absolute Auto 2.47 K/mm3 (0.9-3.2); Mean Corpuscular HGB Conc 33.1 g/dl (32-36); Mean Corpuscular Hemoglobin 29.4 pg (26-34); Mean Corpuscular Volume 88.9 fl (80-100); Nucleated Red Blood Cells Absolute Auto 0.000 K/mm3 (0.0-0.012); Nucleated Red Blood Cells Perc 0.0 % (0.0-0.2); Platelet Count Result 330 k/mm3 (150-375); Red Blood Count 4.49 M/mm3 (4.2-5.4); White Blood Count 7.7 K/mm3 (4.5-10.0)
[2025-02-28 00:17] LABS: Troponin I < 0.012 ng/mL (0.000-0.034)
[2025-02-28 00:45] VITALS: BP 115/56; PULSE 59; RESP 15; O2SAT 100; O2SAT 99
[2025-02-28 00:46] VITALS: PULSE 61
[2025-02-28 02:22] VITALS: BP 139/89; PULSE 63; RESP 18; TEMP 36.7; O2SAT 100
--- NOTE | 2025-02-28 02:36 | ED.CHESTPAIN ---
HPI - Chest Pain General Chief Complaint: Chest Pain Stated Complaint: L sided chest pain x 2 weeks Time Seen by Provider: 02/28/25 02:09 History of Present Illness HPI narrative: 29-year-old female presenting to the emergency department for epigastric/left-sided chest pain intermittent for 2 weeks. Notes it is worse with certain manipulations and movements. No cough or trouble breathing. No nausea, vomiting. Chest pain is short-lived. She was recently told she possibly had gastritis during recent ER visit and evaluation. [place] immediately better after Pepcid administration last time. Has not tried anything at home and did not try any Pepcid. Came to the ER mostly because she was worried that her mother recently diagnosed with heart issues so she went to be evaluated. Denies any history of PE or DVT. No leg swelling or recent surgeries. Was otherwise in her normal state of health Related Data Allergies Allergy/AdvReac Type Severity Reaction Status Date / Time No Known Allergies Allergy Verified 02/27/25 23:35 Review of Systems Review of Systems: As reviewed above in HPI [facility] Surgical History Surgical History Hx of appendectomy Family History Family History Father No problems noted. Sibling No problems noted. Social History Social History Living arrangements: with family Exam Narrative: GENERAL: [Well-appearing, well-nourished, and in no acute distress.] HEAD: [Normocephalic, atraumatic.] EYES: [PERRLA and EOMI.] ENT: Nares clear, no rhinorrhea or epistaxis. Mucous membranes moist. NECK: Supple. CHEST: [Clear to auscultation. No respiratory distress.] HEART: [Regular rate and rhythm]. No murmur heard. [Normal peripheral pulses.] ABDOMEN: [Soft, nondistended], [nontender], [No rigidity or guarding] EXTREMITIES: Normal range of motion. [No edema.] SKIN: Warm, dry, no rash. NEURO: [No focal deficits]. Alert and oriented [x3.] PSYCH: [Normal mood and affect.] Course Vital Signs Vital signs: Vital Signs Temperature 36.9 C 02/27/25 23:46 Pulse Rate 74 02/27/25 23:46 Respiratory Rate 16 02/27/25 23:46 Blood Pressure 118/47 L 02/27/25 23:46 Pulse Oximetry 97 02/27/25 23:46 Oxygen Delivery Room Air 02/27/25 23:46 Temperature 36.7 C 02/28/25 02:22 Pulse Rate 66 02/28/25 02:53 Respiratory Rate 20 02/28/25 02:53 Blood Pressure 126/96 H 02/28/25 02:53 Pulse Oximetry 99 02/28/25 02:53 Oxygen Delivery Room Air 02/28/25 00:45 MDM - Chest Pain MDM Narrative Medical decision making narrative: 29-year-old female presenting to the emergency department for epigastric/left-sided chest pain intermittent for 2 weeks. Notes it is worse with certain manipulations and movements. No cough or trouble breathing. No nausea, vomiting. Chest pain is short-lived. She was recently told she possibly had gastritis during recent ER visit and evaluation. [place] immediately better after Pepcid administration last time. Has not tried anything at home and did not try any Pepcid. Came to the ER mostly because she was worried that her mother recently diagnosed with heart issues so she went to be evaluated. Denies any history of PE or DVT. No leg swelling or recent surgeries. Was otherwise in her normal state of health. Patient is hemodynamically stable with no tachycardia, tachypnea, fever, hypoxia or significant blood pressure concerns. Strong symmetric pulses in clear breath sounds. Currently she is asymptomatic and not having any chest pain or pressure. Cardiac workup was ordered including troponin, EKG, chest x-ray and basic laboratory studies. Patient felt improved with Pepcid before for similar presentation so likely symptoms of gastritis versus GERD versus esophageal spasm versus musculoskeletal chest pain and low suspicion ACS. Given chronicity of symptoms single troponin will be sufficient for rule out. Pulmonary embolism rule out criteria met no need for further workup. EKG is nonischemic, chest x-ray shows no pneumothorax consolidation. Troponin negative. Laboratory studies normal. Patient remained asymptomatic during evaluations. Safe for discharge with PCP follow-up and return precautions and prescription for Pepcid sent to her pharmacy. Patient's questions were answered she was safely discharged. Medical Records Data Attestation: I reviewed the patient's medical records. Lab Data Attestation: I reviewed the patient's lab results. 02/27/25 23:44 02/27/25 23:45 Labs: Lab Results 02/27/25 02/27/25 Range/Units 23:44 23:45 WBC 7.7 (4.5-10.0) K/mm3 RBC 4.49 (4.2-5.4) M/mm3 Hgb 13.2 (12.0-15.0) g/dL Hct 39.9 (37.0-47.0) % MCV 88.9 (80-100) fl MCH 29.4 (26-34) pg MCHC 33.1 (32-36) g/dl RDW 12.3 (11.5-14.5) % Plt Count 330 (150-375) k/mm3 MPV 9.4 (7.4-10.4) fl Immature Gran % (Auto) 0.4 (0-0.5) % Neut % (Auto) 55.3 (45.5-73.1) % Lymph % (Auto) 32.2 (18.3-44.2) % [place] % (Auto) 7.3 (2.6-8.5) % Eos % (Auto) 4.0 (0-4.4) % Baso % (Auto) 0.8 (0.2-1.2) % Lymph # (Auto) 2.47 (0.9-3.2) K/mm3 [place] # (Auto) 0.6 (0.1-0.6) K/mm3 Eos # (Auto) 0.3 (0-0.3) K/mm3 Baso # (Auto) 0.1 (0.0-0.1) K/mm3 Abs Immat Gran (auto) 0.03 (0.00-0.031) K/mm3 Absolute Neuts (auto) 4.2 (1.3-6.7) K/mm3 Absolute Nucleated RBC 0.000 (0.0-0.012) K/mm3 Nucleated RBC % 0.0 (0.0-0.2) % PT 13.4 (11.1-14.7) Seconds INR 1.0 APTT 27.2 (22.3-36.8) Seconds Sodium 137 (137-145) mmol/L Potassium 4.3 (3.4-5.0) mmol/L Chloride 107 (98-107) mmol/L Carbon Dioxide 20 L (22-30) mmol/L Anion Gap 10 (4-12) mmol/L BUN 14 (7-17) mg/dL Creatinine 0.66 L (0.7-1.0) mg/dL Estim Creat Clear Calc 131 ml/min Estimated GFR > 60 (59 - ) Glucose 101 (65-110) mg/dL Calcium 8.6 (8.4-10.2) mg/dL Total Bilirubin 0.3 (0.2-1.3) mg/dL AST 22 (14-36) U/L ALT 17 (6-35) U/L Alkaline Phosphatase 121 (38-126) U/L Troponin I < 0.012 (0.000-0.034) ng/mL Total Protein 7.8 (6.3-8.2) g/dL Albumin 4.2 (3.5-5.1) g/dL Lipase 82 (23-300) U/L Imaging Data Attestation: I personally reviewed and interpreted this imaging study as follows: My impression: No pneumothorax or pneumonia. No consolidations or obvious cardiothoracic process. Discharge Plan Discharge Clinical Impression: Chest pain, Gastritis Patient Disposition: Home Condition: Stable Instructions: Antibiotic Form, Chest Pain (ED), Gastritis (DC) Additional Instructions: All of your laboratory studies, EKG and x-rays are reassuring and appeared normal today. Your symptoms are likely consistent with gastritis versus musculoskeletal chest pain. Your symptoms improved with Pepcid previously so we will prescribe this to take as needed. Follow-up with regular doctor for further evaluation. Return with any worsening or new emergent concerns. Patient Language: Lao Prescriptions: New famotidine [Pepcid] 20 mg tablet 20 mg PO BID Qty: 20 0RF No Action benzonatate 100 mg capsule 100 mg PO TID Qty: 14 0RF methylprednisolone [Medrol (Smooth)] 4 mg tablets,dose pack See Rx Instructions .ROUTE .COMPLEX Qty: 21 0RF Rx Instructions: for 6 days albuterol sulfate [Ventolin HFA] 90 mcg/actuation HFA aerosol inhaler 1 inh inhalation QID PRN (Reason: shortness of breath or wheezing) Qty: 6.7 0RF ondansetron 4 mg tablet,disintegrating 4 mg PO Q8H PRN (Reason: nausea and vomiting) Qty: 7 0RF benzonatate 100 mg capsule 100 mg PO TID Qty: 20 0RF ondansetron 4 mg tablet,disintegrating 4 mg PO Q8H Qty: 15 0RF methylprednisolone [Medrol (Smooth)] 4 mg tablets,dose pack See Rx Instructions .ROUTE .COMPLEX Qty: 21 0RF Rx Instructions: for 6 days Claritin 10 mg tablet,chewable 10 mg PO DAILY Qty: 14 0RF ibuprofen 600 mg tablet 600 mg PO TID PRN (Reason: fever or pain) Qty: 14 0RF fluticasone propionate [Flonase Allergy Relief] 50 mcg/actuation spray,suspension 1 spray intranasal BID Qty: 16 0RF Rx Instructions: administer into each nostril codeine-guaifenesin 10-100 mg/5 mL liquid 2.5 ml PO Q6H Qty: 120 0RF Follow-up/Referrals: PHYSICIAN,STICK PULLER [Primary Care Provider, Internal Medicine] Stand Alone Forms: Work/School Release IP Time of Disposition: 02:24 Quality HEART score for chest pain patients History: slightly suspicious ECG: normal Age: < or = to 45 years Risk factors: no risk factors known Troponin: < or = to 1x normal limit Heart score: 0
--- OUTSIDE RECORDS SUMMARY | 2025-02-28 02:43 | XMS_ITS | Data Portability ---
Author Organization [facility] Address [address] [place] [id number] Assessment Encounter Date Assessment Date Assessment LastModified by Organization Details LastModified Time 08/13/2023 08/13/2023 36 weeks doing well Not available 08/13/2023 11:44:46 08/20/2023 08/20/2023 37 weeks, third baby, no issues Not available 08/20/2023 11:20:16 08/27/2023 08/27/2023 38 weeks doing well, third baby was not induced first two babies Not available 08/27/2023 11:25:27 09/03/2023 09/03/2023 39 weeks doing well induction wednesday. Baby #3, favorable cervix, EFW 7# Not available 09/03/2023 11:37:01 04/17/2024 04/17/2024 Follow-up in 1 year or as needed Not available 04/18/2024 07:51:05 Plan of Treatment Reminders Order Date Submit Date Provider Last Modified By Organization Details Last Modified Time Details Appointments None recorded. Lab vaginal pathogens panel, TACHO+probe, vaginal fluid 2023 024 CANDI [facility], [address], [address], [address], 04:11:31 urinalysis , dipstick 2023 024 [email or web address] In-Office Order, Internal Use Only DO Not Attach Compendium DO Not Attach Compendium, Do Not Delete/merge, [id number] 07:48:48 test, urine 2023 [email or web address] In-Office Order, Internal Use Only DO Not Attach Compendium DO Not Attach Compendium, Do Not Delete/merge, [id number] 07:48:48 pap, IG + reflex HPV if ASC-U 2023 [place] [facility], [address], [address], [address], 4 08:09:17 urinalysis , dipstick 2023 024 In-Office Order, Internal Use Only DO Not Attach Compendium DO Not Attach Compendium, Do Not Delete/merge, 4 11:37:06 urinalysis , dipstick 2023 024 In-Office Order, Internal Use Only DO Not Attach Compendium DO Not Attach Compendium, Do Not Delete/merge, 4 11:25:30 urinalysis , dipstick 2023 024 In-Office Order, Internal Use Only DO Not Attach Compendium DO Not Attach Compendium, Do Not Delete/merge, 4 11:20:19 urinalysis , dipstick 2023 024 In-Office Order, Internal Use Only DO Not Attach Compendium DO Not Attach Compendium, Do Not Delete/merge, 4 11:44:48 Referral None recorded. Procedures None recorded. Surgeries None recorded. Imaging None recorded. Medication Orders Vitamin 27 mg iron-0.8 mg tablet 2023 024 [place] [id number], [address], [place], [place], [id number], 07:50:52 Nexplanon 68 mg subdermal implant 2023 024 [email or web address] Not available 09:37:33 Patient TargetsNo targets recorded. Patient Instructions Encounter Date Encounter Id Patient Instructions Last Modified By Organization Details Last Modified Time 04/17/2024 [id number] Attending Physician Attestation I was physically present during the entire procedure and provided direct supervision throughout procedure duration. I personally saw and examined the patient with the resident. I have reviewed the documentation and agree with the history, physical findings, work-up, and medical decision making as recorded. Nidia Joseph MD mmetias Not available 04/17/2024 17:19:12 Reason for Referral None Reported. Results Created Date Observation Date Name Description Value Unit Range Abnormal Flag Note LastModifiedBy Organization Detail LastModifiedTime 07/16/1907/16/2023 HGB+H CT hemoglobin 11.3 g/dL 11.1-1 5.9 Not Available [facility] ([facility]) [address] [place], [address], 07/17/2023 07:17:03 07/16/19 24 07/16/2023 HGB+H CT hematocrit 33.4 % 34.0-4 6.6 below low normal Not Available [facility] ([facility]) [address] [place], [address], 07/17/2023 07:17:03 07/16/19 24 07/17/2023 ANTIB GREER SCREE N antibody screen Negati ve negati ve Not Available [facility] ([facility]) [address] [place], [address], 07/17/2023 11:13:25 07/16/19 24 07/17/2023 RPR, RFX QN RPR/C ONFIR M TP RPR Non Reacti ve nonrea ctive Not Available [facility] ([facility]) [address] [place], [address], 07/17/2023 11:13:26 07/16/19 24 07/17/2023 HIV AB/P2 4 AG WITH REFLE X HIV Ab/P24 Ag screen Non Reacti ve nonrea ctive HIV Negat aleksandr HIV-1 /HIV- 2 antib odies and HIV-1 p24 antig en were NOT detec ruperto. There is no labor atory evide nce of HIV infec tion. Not Available [facility] ([facility]) [address] [facility], [place], [address], 07/17/2023 11:13:26 07/16/19 24 07/17/2023 GEST. DIABE JULIANN 1-HR SCREE N gestational diabetes screen 161 mg/dL 70-139 above high normal Accor ding to ADA, a gluco se thres hold of >139 mg/dL after 50-gr am load ident ifies appro ximat amarjit 80% of women with gesta musa l diabe juliann melli tus, while the sensi tivit y is furth er incre ased to appro ximat amarjit 90% by a thres hold of >129 mg/dL . Not Available [facility] ([facility]) [address] [facility], [place], [address], 07/17/2023 11:13:28 07/16/19 24 07/16/2023 urina lysis , dipst ick Protein Negati ve Not Available In-Office Order Internal Use Only DO Not Attach Compendium DO Not Attach Compendium, Do Not Delete/merge, [id number] 07/15/2023 15:26:45 07/16/19 24 07/16/2023 urina lysis , dipst ick Glucose Negati ve Not Available In-Office Order Internal Use Only DO Not Attach Compendium DO Not Attach Compendium, Do Not Delete/merge, [id number] 07/15/2023 15:26:45 07/30/1907/30/2023 GESTA MUSA L 3 HOUR GTT-N DDGC note: Commen t Diagn osis of gesta musa l diabe juliann requi res that two or more high thres holds are excee ded. The uli ance test is based on a 100 gm oral gluco se chall enge at 24 - 28 weeks of gesta tion. Not Available [facility] ([facility]) [address] [place], [address], 07/31/2023 11:11:55 07/30/19 24 07/31/2023 GESTA MUSA L 3 HOUR GTT-N DDGC glucose - fasting 83 mg/dL 65-104 Not Available [facility] ([facility]) [address] [place], [address], 07/31/2023 11:11:55 07/30/19 24 07/31/2023 GESTA MUSA L 3 HOUR GTT-N DDGC glucose - 1 hour 164 mg/dL 65-189 Not Available [facility] ([facility]) [address] [place], [address], 07/31/2023 11:11:55 07/30/19 24 07/31/2023 GESTA MUSA L 3 HOUR GTT-N DDGC glucose - 2 hour 140 mg/dL 65-164 Not Available [facility] ([facility]) [address] [place], [address], 07/31/2023 11:11:55 07/30/19 24 07/31/2023 GESTA MUSA L 3 HOUR GTT-N DDGC glucose - 3 hour 55 mg/dL 65-144 below low normal Not Available [facility] ([facility]) [address] [place], [address], 07/31/2023 11:11:55 07/30/1908/01/2023 STREP GP B TACHO strep gp B TACHO Negati ve negati ve Cente rs for Disea se Contr ol and Preve ntion (CDC) and Ameri can Congr ess of Obste trici ans and Gynec ologi sts (ACOG ) guide lines for preve ntion of perin atal group B strep tococ des (GBS) disea se speci fy co-co llect ion of a vagin al and recta l swab speci men to maxim ize sensi tivit y of GBS detec tion. Per the CDC and ACOG, swabb ing both the lower vagin a and rectu m subst antia lly incre ases the yield of detec tion mykel red with sampl ing the vagin a alone . Penic illin G, ampic illin , or cefaz devonte are indic ated for intra partu m proph ylaxi s of perin atal GBS colon izati on. Refle x susce ptibi lity testi ng shoul d be perfo rmed prior to use of clind amyci n only on GBS isola juliann from penic illin -kristyn rgic women who are consi dered a high risk for anaph ylaxi s. Treat ment with vanco mycin witho ut addit ional testi ng is warra nted if resis tance to clind amyci n is noted . Not Available [facility] ([facility]) [address] [facility], [place], [address], 08/01/2023 16:08:27 07/30/19 24 07/30/2023 urina lysis , dipst ick Protein Negati ve Not Available In-Office Order Internal Use Only DO Not Attach Compendium DO Not Attach Compendium, Do Not Delete/merge, 07/29/2023 14:12:13 07/30/19 24 07/30/2023 urina lysis , dipst ick Glucose Negati ve Not Available In-Office Order Internal Use Only DO Not Attach Compendium DO Not Attach Compendium, Do Not Delete/merge, [id number] 07/29/2023 14:12:13 08/13/19 24 08/13/2023 urina lysis , dipst ick Protein Negati ve Not Available In-Office Order Internal Use Only DO Not Attach Compendium DO Not Attach Compendium, Do Not Delete/merge, [id number] 08/12/2023 11:43:32 08/13/19 24 08/13/2023 urina lysis , dipst ick Glucose Negati ve Not Available In-Office Order Internal Use Only DO Not Attach Compendium DO Not Attach Compendium, Do Not Delete/merge, [id number] 08/12/2023 11:43:32 08/20/19 24 08/20/2023 urina lysis , dipst ick Protein Negati ve Not Available In-Office Order Internal Use Only DO Not Attach Compendium DO Not Attach Compendium, Do Not Delete/merge, [id number] 08/19/2023 14:08:26 08/20/19 24 08/20/2023 urina lysis , dipst ick Glucose Negati ve Not Available In-Office Order Internal Use Only DO Not Attach Compendium DO Not Attach Compendium, Do Not Delete/merge, [facility] 08/19/2023 14:08:26 08/27/19 24 08/27/2023 urina lysis , dipst ick Protein Negati ve Not Available In-Office Order Internal Use Only DO Not Attach Compendium DO Not Attach Compendium, Do Not Delete/merge, [facility] 08/26/2023 12:01:40 08/27/19 24 08/27/2023 urina lysis , dipst ick Glucose Negati ve Not Available In-Office Order Internal Use Only DO Not Attach Compendium DO Not Attach Compendium, Do Not Delete/merge, [facility] 08/26/2023 12:01:40 09/03/19 24 09/03/2023 urina lysis , dipst ick Protein Negati ve Not Available In-Office Order Internal Use Only DO Not Attach Compendium DO Not Attach Compendium, Do Not Delete/merge, [facility] 09/01/2023 14:26:41 09/03/19 24 09/03/2023 urina lysis , dipst ick Glucose Negati ve Not Available In-Office Order Internal Use Only DO Not Attach Compendium DO Not Attach Compendium, Do Not Delete/merge, [facility] 09/01/2023 14:26:41 02/09/20 24 02/10/2024 HCG,B ETA SUBUN IT, QNT HCG,beta subunit,qnt, serum <1 mIU/m L Femal e (Non- pregn ant) 0 - 5 (Post menop ausal ) 0 - 8 Femal e (Preg nant) Weeks of Gesta tion 3 6 - 71 4 10 - 750 5 248 - 5493 6 788 - 84728 7 0534 -8882 63 8 13916 -2138 71 9 96246 -4580 10 10 66681 -3239 77 12 99819 -2106 12 14 23805 - 47828 15 97309 - 94903 16 2198 - 21789 17 6408 - 91761 18 9747 - 29743 Tree ECLIA metho dolog y Not Available [facility] ([facility]) [address] [facility], [place], [address], 02/10/2024 08:29:33 04/17/20 24 04/18/2024 NUSWA B VAGIN ITIS PLUS (VG+) atopobium vaginae LOW - 0 score Not Available [facility] ([facility]) [address] [facility], [place], [address], 04/19/2024 04:11:31 04/17/20 24 04/18/2024 NUSWA B VAGIN ITIS PLUS (VG+) bvab 2 LOW - 0 score Not Available [facility] ([facility]) [address] [facility], [place], [address], 04/19/2024 04:11:31 04/17/20 24 04/18/2024 NUSWA B VAGIN ITIS PLUS (VG+) megasphaera 1 LOW - 0 score Calcu late total score by lai lujan the 3 indiv idual bacte rial vagin osis (BV) marke r score s toget her. Total score is inter prete d as follo ws: Total score 0-1: Indic ates the absen ce of BV. Total score 2: Indet ermin ate for BV. Addit ional clini des data shoul d be evalu ated to estab shakira a diagn osis. Total score 3-6: Indic ates the prese nce of BV. Not Available [facility] ([facility]) [address] [facility], [place], [address], 04/19/2024 04:11:31 04/17/20 24 04/18/2024 NUSWA B VAGIN ITIS PLUS (VG+) yossi albicans, TACHO NEGATI VE negati ve Not Available [facility] ([facility]) [address] [facility], [place], [address], 04/19/2024 04:11:31 04/17/20 24 04/18/2024 NUSWA B VAGIN ITIS PLUS (VG+) yossi glabrata, TACHO NEGATI VE negati ve Not Available [facility] ([facility]) [address] [facility], [place], [address], 04/19/2024 04:11:31 04/17/20 24 04/19/2024 NUSWA B VAGIN ITIS PLUS (VG+) trich vag by TACHO NEGATI VE negati ve Not Available [facility] ([facility]) [address] [facility], [place], [address], 04/19/2024 04:11:31 04/17/20 24 04/19/2024 NUA B VAGIN ITIS PLUS (VG+) chlamydia trachomatis, TACHO NEGATI VE negati ve Not Available [facility] ([facility]) [address] [facility], [place], [address], 04/19/2024 04:11:31 04/17/20 24 04/19/2024 NUA B VAGIN ITIS PLUS (VG+) neisseria gonorrhoeae, TACHO NEGATI VE negati ve Not Available [facility] ([facility]) [address] [facility], [place], [address], 04/19/2024 04:11:31 04/17/20 24 04/24/2024 IGP,R FX APT HPV ASCU, 16/18 ,45 diagnosis: COMMEN T NEGAT ALEKSANDR FOR INTRA EPITH ELIAL LESIO N OR MALIG JOSELIN . CELLU LAR OVALLES ES ASSOC IATED WITH INFLA MMATI ON ARE PRESE NT. Not Available [facility] ([facility]) [address] [facility], [place], [address], 04/24/2024 08:09:17 04/17/20 24 04/24/2024 IGP,R FX APT HPV ASCU, 16/18 ,45 specimen adequacy: JEREMIAH Donovan Satis facto ry for evalu ation . Endoc ervic al and/o r squam ous metap lasti c cells (endo cervi des compo nent) are prese nt. Not Available [facility] ([facility]) [address] [place], [address], 04/24/2024 08:09:17 04/17/20 24 04/24/2024 IGP,R FX APT HPV ASCU, 16/18 ,45 clinician provided ICD10: JEREMIAH Donovan N89.8 Z12.4 Not Available [facility] ([facility]) [address] [place], [address], 04/24/2024 08:09:17 04/17/20 24 04/24/2024 IGP,R FX APT HPV ASCU, 16/18 ,45 performed by: JEREMIAH ferreira, Gala visor y Cytot nasra donovan (ASCP ) Not Available [facility] ([facility]) [address] [place], [address], 04/24/2024 08:09:17 04/17/20 24 04/24/2024 IGP,R FX APT HPV ASCU, 16/18 ,45 . . Not Available [facility] ([facility]) [address] [place], [address], 04/24/2024 08:09:17 04/17/20 24 04/24/2024 IGP,R FX APT HPV ASCU, 16/18 ,45 note: JEREMIAH Donovan The Pap smear is a scree francisco test desig lisa to aid in the detec tion of loly ligna nt and malig nant condi tions of the uteri ne cervi x. It is not a diagn ostic proce dure and shoul d not be used as the sole means of detec ting cervi des cance r. Both false -posi tive and false -nega tive repor ts do occur . Not Available [facility] ([facility]) [address] [facility], [place], [address], 04/24/2024 08:09:17 04/17/20 24 04/24/2024 IGP,R FX APT HPV ASCU, 16/18 ,45 test methodology: COMMEN T This liqui d based ThinP rep(R ) pap test was eli gonzalez with the use of an image guide linh khan. Not Available [facility] ([facility]) [address] [facility], [place], [address], 04/24/2024 08:09:17 04/17/20 24 04/24/2024 IGP,R FX APT HPV ASCU, 16/18 ,45 . COMMEN T The HPV DNA refle x crite esteban were not met with this speci men resul t there fore, no HPV testi ng was perfo rmed. Not Available [facility] ([facility]) [address] [facility], [place], [address], 04/24/2024 08:09:17 04/17/20 24 04/17/2024 pregn ramon test, urine HCG negati ve Not Available In-Office Order Internal Use Only DO Not Attach Compendium DO Not Attach Compendium, Do Not Delete/merge, [id number] 04/17/2024 16:39:56 04/17/20 24 04/17/2024 urina lysis , dipst ick Leukocytes Trace Not Available In-Offi ce Order Internal Use Only DO Not Attach Compendium DO Not Attach Compendium, Do Not Delete/merge, [id number] 04/17/2024 16:39:19 04/17/20 24 04/17/2024 urina lysis , dipst ick Nitrite negati ve Not Available In-Office Order Internal Use Only DO Not Attach Compendium DO Not Attach Compendium, Do Not Delete/merge, [id number] 04/17/2024 16:39:19 04/17/20 24 04/17/2024 urina lysis , dipst ick Urobilinogen .2 Not Available In-Of fice Order Internal Use Only DO Not Attach Compendium DO Not Attach Compendium, Do Not Delete/merge, 04/17/2024 16:39:19 04/17/20 24 04/17/2024 urina lysis , dipst ick Protein Negati ve Not Available In-Office Order Internal Use Only DO Not Attach Compendium DO Not Attach Compendium, Do Not Delete/merge, 04/17/2024 16:39:19 04/17/20 24 04/17/2024 urina lysis , dipst ick pH 5.5 Not Available In-Office Order Internal Use Only DO Not Attach Compendium DO Not Attach Compendium, Do Not Delete/merge, 04/17/2024 16:39:19 04/17/20 24 04/17/2024 urina lysis , dipst ick Blood Negati ve Not Available In-Office Order Internal Use Only DO Not Attach Compendium DO Not Attach Compendium, Do Not Delete/merge, 04/17/2024 16:39:19 04/17/20 24 04/17/2024 urina lysis , dipst ick Specific [place] 1.030 Not Available In-Off ice Order Internal Use Only DO Not Attach Compendium DO Not Attach Compendium, Do Not Delete/merge, 04/17/2024 16:39:19 04/17/20 24 04/17/2024 urina lysis , dipst ick Ketone Negati ve Not Available In-Office Order Internal Use Only DO Not Attach Compendium DO Not Attach Compendium, Do Not Delete/merge, 04/17/2024 16:39:19 04/17/20 24 04/17/2024 urina lysis , dipst ick Bilirubin Negati ve Not Available In-Office Order Internal Use Only DO Not Attach Compendium DO Not Attach Compendium, Do Not Delete/merge, 04/17/2024 16:39:19 04/17/20 24 04/17/2024 urina lysis , dipst ick Glucose Negati ve Not Available In-Office Order Internal Use Only DO Not Attach Compendium DO Not Attach Compendium, Do Not Delete/merge, 04/17/2024 16:39:19 07/23/19 24 07/23/2023 US, obste tric, mater nal evalu ation + anato my No observ ation record ed. [facility] Scheduling [address] [facility] [place], [address], 07/23/2023 14:39:09 07/23/19 24 07/23/2023 US, obste tric, mater nal evalu ation + anato my No observ ation record ed. [facility] [address] [facility] [place], [address], 07/26/2023 11:02:59 Result Notes None recorded. Problems Name Problem SNOMED Code Status Onset Date Resolution Date Notes Provider Name and Address Organization Details Recorded Time 10572935 Completed 202209/08/2023 Francy Gu RN null, [place] - [place] 4 12:30:46 Implantatio n of subcutaneou s contracepti ve Active 2023 Lou Rowan MD Attn: Charley lujan,[address] [place], [address], [facility] - SI 4 07:50:13 Contracepti on care management Active 2023 Lou Rowan MD Attn: Charley lujan,[address] [place], [address], [facility] - SI 4 07:50:16 Vaginal discharge 785742253 Active 2023 Lou Rowan MD Attn: Charley lujan,[address] [place], [address], [facility] - SI 4 07:51:10 Screening for malignant neoplasm of cervix Active 2023 Lou Rowan MD Attn: Charley lujan,[address] [place], [address], [facility] - SIF 4 07:50:22 Gynecologic examination Active 2023 Lou Rowan MD Attn: Charley lujan,[address] [place], [address], [facility] SI 07:50:23 Problem Notes None recorded. Procedures Surgical History Date Name Laterality Status Provider Name and Address Organization Details Recorded Time 04/17/20 Control Implant Insertion completed Lou Rowan MD Attn: Accounting,[address] [facility], [place], [address], [facility] SI 04/22/2024 21:21:42 Appendectomy completed Kristyn Riley MA [facility] 01/28/2023 14:21:06 Imaging Results None recorded. Procedure Notes None recorded. Medical Equipment None Reported. Allergies No known drug allergies Medications Name Sig Start Date Stop Date Status Note LastModified by Organization Details LastModified Time ondansetr on 4 mg disintegr ating tablet DISSOLVE ONE TABLET BY MOUTH EVERY 6 HOURS NEEDED active Not Available Not Available No t Available Vitamin 27 mg iron-0.8 mg tablet Take 1 tablet every day by oral route for 90 days. 2023 active Not Available Not Available Not Avai lable nitrofura ntoin monohydra te/macroc rystals 100 mg capsule TAKE 1 CAPSULE BY MOUTH EVERY 12 HOURS FOR 5 DAYS 08/12 completed Not Available Not Available Not Available RhoGAM Ultra-Edward tered PLUS 1,500 unit (300 mcg) intramusc ular syringe Inject 1 syringe by intramus cular route. 2023 active Not Available Not Available Not Avai lable Nexplanon 68 mg subdermal implant Inject 1 implant by subcutan eous route. 2023 active Pt tolerate d procedur e well. PRABHU XAVIER Not Available Not Available Not Available Vitals Date Recorded Body weight Provider Name an d Address Organization Details Last Updated DateTime 08/13/2023 43854.4622 g Sunny Paetl MD Attn: Accounting,[address] [facility], [place], [address], [facility] 08/13/2023 11:44:28 Date Recorded Body height Body mass index (BMI) Systolic And Diastolic Provider Name and Address Organization Details Last Updated DateTime 08/13/2023 165.1 cm 35.5 kg/m2 110/76 mm[Hg] Kimberly Seals Jose [facility] 08/13/2023 11:24:44 Date Recorded Body weight Provider Name an d Address Organization Details Last Updated DateTime 08/20/2023 99367.94878 g Sunny Patel MD Attn: Accounting,[address] [place], [address], [facility] 08/20/2023 11:20:05 Date Recorded Body height Body mass index (BMI) Systolic And Diastolic Provider Name and Address Organization Details Last Updated DateTime 08/20/2023 165.1 cm 35.3 kg/m2 110/74 mm[Hg] Kimberly Seals [facility] 08/20/2023 11:05:07 Date Recorded Body weight Provider Name an d Address Organization Details Last Updated DateTime 08/27/2023 54050.75359 g Sunny Patel MD Attn: Accounting,[address] [place], [address], [facility] 08/27/2023 11:24:50 Date Recorded Body height Body mass index (BMI) Systolic And Diastolic Provider Name and Address Organization Details Last Updated DateTime 08/27/2023 165.1 cm 35.6 kg/m2 98/66 mm[Hg] Kimberly Seals Jose [facility] 08/27/2023 11:08:31 Date Recorded Body weight Provider Name an d Address Organization Details Last Updated DateTime 09/03/2023 20198.53065 g Sunny Patel MD Attn: Accounting,[address] [place], [address], [facility] SI 09/03/2023 11:36:37 Date Recorded Body height Body mass index (BMI) Systolic And Diastolic Provider Name and Address Organization Details Last Updated DateTime 09/03/2023 165.1 cm 35.9 kg/m2 110/64 mm[Hg] Francy Gu RN [facility] 09/03/2023 11:23:48 Date Recorded Body height Body mass index (BMI) Body weight Heart rate Oxygen saturation Oxygen saturation in Arterial blood by Pulse oximetry Systolic And Diastolic Provider Name and Address Organization Details Last Updated DateTime 165.1 cm 38.4 kg/m2 444661. 84 g 76 /min 97 % 97 % 122/72 mm[Hg] Michelle Alejo MA [place] [facility] 15:53:15 Social History Question Answer Notes LastModified by Organizat ion Details LastModified Time Tobacco Smoking Status Never Smoker Kristyn RileyPRABHU null, [place] - [place] 01/28/2023 14:20:47 What Was The Date Of Your Most Recent Tobacco Screening? 04/17/2024 [email or web address] Information not available 04/17/2024 Has Tobacco Cessation Counseling Been Provided? No Information not available 01/28/2023 Sex: Female Functional Status Question Answer Note LastModified by Organizat ion Details LastModified Time Do you use any illicit or recreational drugs? No Information not available 01/28/2023 Do you or have you ever used any other forms of tobacco or nicotine? No Information not available 01/28/2023 What is your level of alcohol consumption? Moderate Information not available 01/28/2023 Mental Status None recorded. Family History Relationship Description Onset Age of this Age Resolved Age Notes LastModified by Organization Details LastModified Time Father No current problems or disability [email or web address] Not available 01/28 14:20:16 Mother No current problems or disability [email or web address] Not available 01/28 14:20:16 Medical History Condition Response Coronary Artery Disease N Other N Atrial Fibrillation N High Blood Pressure N Thyroid Problems N Kidney or Bladder Problems N Depression N COPD N Blood Clots N GI Problems N Skin Problems N Anemia N Heart Attack ([place]) N Diabetes N Anxiety Disorder N Muscle, Joint, or Bone Problems N Seizures/Epilepsy N Acid Reflux (GERD) N Cancer N Stroke N Allergies N Asthma N High Cholesterol N Hepatitis N Liver Disease N Headaches N Osteoporosis N Heart Failure N Gynecological History Statement/Question Response Date of LMP 12/04/2022 On BCP's at Conception? N Menses Monthly Y STIs/STDs N Date of Last Pap Smear Duration of Flow (days) 4 Age at Menarche 13 Current Control Method None Age at First Child 18 LMP Approximate Obstetrics History GPAL:G 3 P 3 0 0 3 Type Value Full Term 3 Living 3 Total 3 Immunizations Vaccine Type Date Status Note Provider Nam e and Address Organization Details Recorded Time Tdap 07/30/2023 completed Sunny Patel MD Attn: Accounting,[address] [facility], [place], [address], [facility] 07/30/2023 12:12:25 Past Encounters Encounter ID Performer Location Encounter Start Date Encounter Closed Date Diagnosis/Indication Diagnosis SNOMED-CT Code Diagnosis ICD10 Code Diagnosis IMO Codes Diagnosis Note [id number] Chelly Reyes [facility]- Giovanni 14 OB [address] [facility] [place] [address] 01/28/2023 13:56:28 01/29/2023 09:00:21 test positive [id number] Z32.01 [id number] MD Giovanni Livingston 14 OB [address] [facility] [place] [address] 07/09/2023 10:51:05 07/12/2023 09:33:17 Normal [id number] Z34.90 [id number] MD Giovanni Livingston 14 OB [address] [facility] [place] [address] 07/16/2023 10:05:03 07/19/2023 09:46:35 Normal [id number] Z34.90 Third trim avel [id number] Z33.1 [id number] MD Giovanni Livingston 14 OB [address] [facility] [place] [address] 07/30/2023 11:15:38 08/02/2023 09:12:02 Normal [id number] Z34.90 Administra tion of diphtheria, pertussis, and tetanus vaccine [id number] Z23 [id number] MD Giovanni Livingston 14 OB [address] [facility] [place] [address] 08/13/2023 11:12:12 08/16/2023 08:51:47 Normal [id number] Z34.90 [id number] MD Giovanni Livingston 14 OB [address] [facility] [place] [address] 08/20/2023 10:42:19 08/23/2023 08:38:23 Normal [id number] Z34.90 [id number] MD Giovanni Livingston 14 OB [address] [facility] [place] [place] [address] 08/27/2023 10:37:44 08/30/2023 09:27:24 Normal [id number] Z34.90 [id number] MD Giovanni Livingston 14 OB [address] 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 Screening for malignant neoplasm of cervix 250978129 Z12.4 Patient is due for pap smear. Vaginal discharge 514051 006 N89.8 DDX BV, yeast, contact irritation . - Test Nuswab vaginitis- Pt counselled on avoiding soaps, douching, and scented laundry detergent; wearing cotton underwear, and encouragin g air flow Contracept ion care management [id number] Z30.9 Discussed options. Patient desires Nexplanon. Inserted as above. Advised to continue PNV. Implantati on of subcutaneous contraceptive 841411532 Z30.46 Inserted in left arm without complicati on. Will in April 2027. Health Concerns Section Related Observation LastModified by Organization Detai ls LastModified Time None Recorded Concern Status LastModified by Organization Details LastModified Time None Recorded Advance Directives Directive None Recorded Payers Insurance Date Sequence Insurance Name Policy Number Policy Estrella Covered Member ID Estrella Member ID Guarantor Name 07/01/2024 1 [facility] - DOS PRIOR TO 2025 (MEDICAID REPLACEMENT - HMO) [id number] Sharonda Ziegler [id number] Sharonda Ziegler 07/09/2023 SLIDING FEE SCHEDULE - DISCOUNT Sharonda Ziegler 05/15/2024 1 [place] [employer] [facility] [place] [facility] Sharonda Ziegler [id number] Sharonda Ziegler 08/25/2023 1 MEDICAID - [facility] - PENDING -[id number] Sharonda Ziegler 07/30/2023 2 *SELF PAY* Da yuri Zeigler Notes Date Note Type Note Provider Name and Address Organization Details Recorded Time 04/17/2024 text/html Annual GYNReport ed by PatientHistoryFor history, patient reportsno gynecologic complaints(planning nexplanon).Genitourina ry symptomsFor urinary symptoms, patient reportsno hematuriaandno incontinence. For vulva, patient reportsno genital lesion. For vagina, patient reportsnormal vaginal discharge. For menstrual cycle, (no periods).Breast symptomsFor breast, (history of reactive lymph node in midline checked in [place], not causing issues).ContraceptionF or current contraception, patient reportsmonogamous relationship.Endocrine symptomsFor sexual complaints, patient reportsno sexual complaints,no pain during intercourse, andnormal libido. 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 Had baby 09/06/23, got depo next dayNo periods since then Cervical cancer screening - due todaySTI screening - neg in AD 7, PHQ 2 - 0 on 04/17/24Intimate partner violence - no concerns NIDIA JOSEPH MD Attn: Accounting[address] [place], [address], [place] [facility] 04/23/2024 21:55:57 OBGyn Episode Ob Episode Information Episode Created Date Number of Fetuses Patient Bloodtype Patient rh Status Prepregnancy Weight lbs Domestic Partner Domestic Partner Phone Father Name Driller And Reamer Status 04/17/20 24 1 CLOSED Fetus Data First Name Last Name Admitted to NICU Weight (g) Sex Living Outcome Pediatric Complications Fetus ID Race Codes Race Delivery Type F Full Term [id number] Senthil Calculation Initial Senthil Date Initial Exam Date Initial Exam Provider Initial Ultrasound Date Last Menstrual Period Date Ultra Sound Weeks Gestation 0 Eighteen To Twenty Week Senthil Update Ultra Sound Date Fundal Height At Umbil Quickening Date Ultra Sound Latest Weeks Gestation Final Senthil Confirmed By Final Senthil Confirmed Date Final Senthil Date Ultra Sound Latest Days Gestation 0 0 Menstrual History Last Menstrual Date Menses Monthly On Bcp Conception Prior Menses Frequency Hcg Plus Date Menarche Onset Age Delivery Information Delivery Date Delivery Type Labor Anesthesia Weeks Gestation Incision Type Labor Labor Length Hrs Delivered By Post Complications Tubal Sterilization Discharge Date Comments 5 Discharge Information Feeding Method Contraceptive Method Maternal HG B and HCT Levels Ob Episode Information Episode Created Date Number of Fetuses Patient Bloodtype Patient rh Status Prepregnancy Weight lbs Domestic Partner Domestic Partner Phone Father Name Driller And Reamer Status 04/17/20 24 1 CLOSED Fetus Data First Name Last Name Admitted to NICU Weight (g) Sex Living Outcome Pediatric Complications Fetus ID Race Codes Race Delivery Type F Full Term [id number] Senthil Calculation Initial Senthil Date Initial Exam Date Initial Exam Provider Initial Ultrasound Date Last Menstrual Period Date Ultra Sound Weeks Gestation 0 Eighteen To Twenty Week Senthil Update Ultra Sound Date Fundal Height At Umbil Quickening Date Ultra Sound Latest Weeks Gestation Final Senthil Confirmed By Final Senthil Confirmed Date Final Senthil Date Ultra Sound Latest Days Gestation 0 0 Menstrual History Last Menstrual Date Menses Monthly On Bcp Conception Prior Menses Frequency Hcg Plus Date Menarche Onset Age Delivery Information Delivery Date Delivery Type Labor Anesthesia Weeks Gestation Incision Type Labor Labor Length Hrs Delivered By Post Complications Tubal Sterilization Discharge Date Comments 7 Discharge Information Feeding Method Contraceptive Method Maternal HG B and HCT Levels Ob Episode Information Episode Created Date Number of Fetuses Patient Bloodtype Patient rh Status Prepregnancy Weight lbs Domestic Partner Domestic Partner Phone Father Name Driller And Reamer Status 01/29/20 23 1 O Negative CLOSED Fetus Data First Name Last Name Admitted to NICU Weight (g) Sex Living Outcome Pediatric Complications Fetus ID Race Codes Race Delivery Type Yves Ziegler [phone] F true Full Term [id number] White Vaginal Senthil Calculation Initial Senthil Date Initial Exam Date Initial Exam Provider Initial Ultrasound Date Last Menstrual Period Date Ultra Sound Weeks Gestation 09/10/2023 01/28/2023 [email or web address] 05/09/2023 12/04/2022 22 Eighteen To Twenty Week Senthil Update Ultra Sound Date Fundal Height At Umbil Quickening Date Ultra Sound Latest Weeks Gestation Final Senthil Confirmed By Final Senthil Confirmed Date Final Senthil Date Ultra Sound Latest Days Gestation 0 07/09/2023 09/10/19 24 0 Pre- Flowsheet Flowsheet Date 01/28/2023 Childs Score Blood Edema Fundus Height Fundus Units Glucose Ketones Leukocytes Nitrite Labor Signs Protein Cervic Dilation Cervic Effacement Cervic Station none Type Weight in lbs Pre/Post Dialysis Refused Weight 215.481040352631 BP Diastolic BP Location Tested BP Systolic BP Type 70 106 sitting Fetus Heart Rate Present Fetus Movement Comments doing well with no complaint s, 2 children at home ages 6 and 7. both vaginal full term deliveries with no complications. new ob labs done today, ultrasound order given. rtc in 4 weeks, sooner if needed. Flowsheet Date 07/09/2023 Childs Score Blood Edema Fundus Height Fundus Units Glucose Ketones Leukocytes Nitrite Labor Signs Protein Cervic Dilation Cervic Effacement Cervic Station none 30 cm none trace Type Weight in lbs Pre/Post Dialysis Refused With clothes 208.35270389847 BP Diastolic BP Location Tested BP Systolic BP Type 76 122 sitting Fetus Heart Rate Present A 145 Present Fetus Movement A Yes Comments 3rd baby, 2 vaginal deliveri es in pastthis is girl #3needs sugar test and rhogam ; back in a week for thoseonly had an US in [place], appears to have confirmed dateswill get US after next visit Flowsheet Date 07/16/2023 Childs Score Blood Edema Fundus Height Fundus Units Glucose Ketones Leukocytes Nitrite Labor Signs Protein Cervic Dilation Cervic Effacement Cervic Station none 30 cm none neg Type Weight in lbs Pre/Post Dialysis Refused With clothes 208.975136731943 BP Diastolic BP Location Tested BP Systolic BP Type 80 122 sitting Fetus Heart Rate Present A 143 Present Fetus Movement A Yes Comments Doing sugar test todaystill no rhogam in office, will put her on the list to get it, hopefully next weekorder for anatomy US given, hopefully will be able to schedule before next week Flowsheet Date 07/30/2023 Childs Score Blood Edema Fundus Height Fundus Units Glucose Ketones Leukocytes Nitrite Labor Signs Protein Cervic Dilation Cervic Effacement Cervic Station none 32 cm Type Weight in lbs Pre/Post Dialysis Refused With clothes 208.236147996271 BP Diastolic BP Location Tested BP Systolic BP Type 80 118 sitting Fetus Heart Rate Present A 148 Present Fetus Movement A Yes Comments doing well3 hr GTT ongoing t odaydiscussed recent US, GDM possibility, epidurals, etc Flowsheet Date 08/13/2023 Childs Score Blood Edema Fundus Height Fundus Units Glucose Ketones Leukocytes Nitrite Labor Signs Protein Cervic Dilation Cervic Effacement Cervic Station none 33 cm none neg Type Weight in lbs Pre/Post Dialysis Refused With clothes 213.243636169860 BP Diastolic BP Location Tested BP Systolic BP Type 76 110 sitting Fetus Heart Rate Present A 154 Present Fetus Movement A Yes Comments 36 weeks doing well with thi rd babyplan cervix check next time Flowsheet Date 08/20/2023 Childs Score Blood Edema Fundus Height Fundus Units Glucose Ketones Leukocytes Nitrite Labor Signs Protein Cervic Dilation Cervic Effacement Cervic Station none 34 cm none neg 1cm 40% Type Weight in lbs Pre/Post Dialysis Refused With clothes 212.28351976564 BP Diastolic BP Location Tested BP Systolic BP Type 74 110 sitting Fetus Heart Rate Present A 145 Present Fetus Movement A Yes Comments 37 weeks, doing well, active baby, lost mucous plugbaby #3, no issuesdiscussed labor precautions / kick counts / 39 week induction options Flowsheet Date 08/27/2023 Childs Score Blood Edema Fundus Height Fundus Units Glucose Ketones Leukocytes Nitrite Labor Signs Protein Cervic Dilation Cervic Effacement Cervic Station none 35 cm none neg Type Weight in lbs Pre/Post Dialysis Refused With clothes 214.558985565388 BP Diastolic BP Location Tested BP Systolic BP Type 66 98 sitting Fetus Heart Rate Present A 146 Present Fetus Movement A Yes Comments 38 weeks doing welldiscussed possible 09/06/23 inductionkick counts, labor precautions Flowsheet Date 09/03/2023 Childs Score Blood Edema Fundus Height Fundus Units Glucose Ketones Leukocytes Nitrite Labor Signs Protein Cervic Dilation Cervic Effacement Cervic Station none 35 cm none neg Type Weight in lbs Pre/Post Dialysis Refused Weight 216.271618315613 BP Diastolic BP Location Tested BP Systolic BP Type 64 110 Fetus Heart Rate Present A 145 Present Fetus Movement Comments 39 weeks doing well, was 2.5 cm on L&D a couple days agoset up for induction on Wednesdaylabor precautions / kick counts Menstrual History Last Menstrual Date Menses Monthly On Bcp Conception Prior Menses Frequency Hcg Plus Date Menarche Onset Age 0612/04/2022 true false 4 3 12 Genetic Screening And Infection History Question Response Note Patient's Age Will Be 35 Years Or Older At Estim ated Date of Delivery false Thalassemia (Indonesian, Chilean, Mediterranean, Or Background): MCV < 80 false Neural Tube Defect (Meningomyelocele, Spina Bifi da, Or Anencephaly) false Congenital Heart Defect false Down Syndrome false Teto-Sachs (eg, Roman Catholic, Cajun, Somali-Hays) f alse Bossman Disease false Sickle Cell Disease Or Trait () false Hemophilia Or Other Blood Disorders false Muscular Dystrophy false Cystic Fibrosis false [place] false Mental Retardation/Autism false If Yes, Was Person Tested For Fragile X? false Other Inherited Genetic Or Chromosomal Disorder false Maternal Metabolic Disorder (eg, Type 1 Diabetes , PKU) false Patient Or Baby's Father Had A Child With Defects Not Listed Above false Recurrent Loss, Or A Stillbirth false Medications (including Suppl ements, Vitamins, Herbs, OTC Drugs), Illicit/Recreational Drugs, Alcohol false If Yes, Agent(s) And Strength/Dosage false Any Other Genetic History false Live With Someone With TB Or Exposed To TB false Patient Or Partner Has History Of Genital Herpes false Rash Or Viral Illness Since Last Menstrual Perio d false History Of STD, Gonorrhea, Chlamydia, HPV, Syphi lis false Other Infection History false History of HIV false History of Hepatitis false Prior GBS-infected child false Delivery Information Delivery Date Delivery Type Labor Anesthesia Weeks Gestation Incision Type Labor Labor Length Hrs Delivered By Post Complications Tubal Sterilization Discharge Date Comments 4 Induce d 39.3 false Sunny Patel MD 09/07/2023 Discharge Information Feeding Method Contraceptive Method Maternal HG B and HCT Levels
[2025-02-28 02:52] VITALS: BP 126/96; PULSE 66; RESP 20; O2SAT 99
[2025-02-28 02:53] VITALS: BP 126/96; PULSE 66; RESP 20; O2SAT 99
== END 2025-02-28 02:55 | disposition home or self-care (01) ==
LOC: ANHED 02-28 02:41
PROVIDERS: Emergency Provider Student in an Organized Health Care Education/Training Program
DX: R07.9 Chest pain, unspecified (principal); K29.70 Gastritis, unspecified, without bleeding
CPT/HCPCS: 36415; 71046; 80053; 83690; 84484; 85025; 85610; 85730; 93005; 99284

== ENCOUNTER 2025-04-19 12:23 | Emergency (ER) | payer BC, SELFPAY ==
[2025-04-19 12:35] VITALS: BP 117/58; PULSE 72; RESP 16; TEMP 36.4; O2SAT 99
--- OUTSIDE RECORDS SUMMARY | 2025-04-19 14:24 | XMS_ITS | Data Portability ---
Author Organization [facility], Main Office Address [address] [place] [address] Assessment Encounter Date Assessment Date Assessment LastModified by Organization Details LastModified Time 09/14/2024 09/14/2024 Time spent with patient included: preparing to see patient by reviewing tests, obtaining and reviewing history, medical examination and evaluation, counseling and educating the patient, ordering medications and tests, documenting clinical information in EHR, independently interpreting results and communicating results to the patient for a total of 28 minutes. [email or web address] Not available 09/14/2024 09:58:11 Plan of Treatment Reminders Order Date Submit Date Provider Last Modified By Organization Details Last Modified Time Details Appointments None recorded. Lab None recorded. Referral None recorded. Procedures None recorded. Surgeries None recorded. Imaging CT, chest, w/o contrast 2024 026 anal5 [facility] ([facility] [address] [place], [address], 09:57:35 Medication Orders None recorded. Patient TargetsNo targets recorded. Patient InstructionsNo instructions recorded. Reason for Referral None Reported. Results Created Date Observation Date Name Description Value Unit Range Abnormal Flag Note LastModifiedBy Organization Detail LastModifiedTime 09/15/19 1996 XR, chest , 2 view No observ ation record ed. BARCODE Not Available 2024 16:25:18 Result Notes None recorded. Problems Name Problem SNOMED Code Status Onset Date Resolution Date Notes Provider Name and Address Organization Details Recorded Time Multiple nodules of lung 566936690 Active 025 Liyah Virgen NP [address] [facility], [facility] [address], [place], [address] , [facility] 09:24:01 Problem Notes None recorded. Medical Equipment None Reported. Allergies No known drug allergies Medications Name Sig Start Date Stop Date Status Note LastModified by Organization Details LastModified Time benzonatate 100 mg capsule TAKE 1 CAPSULE BY MOUTH THREE TIMES DAILY 09/14 completed Not Available Not Available Not Available codeine 10 mg-guaifene sin 100 mg/5 mL oral liquid TAKE 2.5 ML BY MOUTH EVERY 6 HOURS active Not Available Not Available No t Available ibuprofen 600 mg tablet TAKE 1 TABLET BY MOUTH THREE TIMES DAILY NEEDED FOR FEVER OR PAIN 09/14 completed Not Available Not Available Not Available methylpredn isolone 4 mg tablets in a dose pack FOLLOW PACKAGE DIRECTION S 09/14 completed Not Available Not Available Not Available albuterol sulfate HFA 90 mcg/actuati on aerosol inhaler INHALE 1 PUFF BY MOUTH FOUR TIMES DAILY NEEDED FOR SHORTNESS OF BREATH OR WHEEZING active Not Available Not Available No t Available ondansetron 4 mg disintegrat ing tablet DISSOLVE 1 TABLET BY MOUTH EVERY 8 HOURS 09/14 completed Not Available Not Available Not Available fluticasone propionate 50 mcg/actuati on nasal spray,suspe nsion USE 1 SPRAY IN EACH NOSTRIL TWICE DAILY 09/14 completed Not Available Not Available Not Available Vitals Date Recorded Body height Body mass index (BMI) Body weight Body temperature Heart rate Oxygen saturation Oxygen saturation in Arterial blood by Pulse oximetry Systolic And Diastolic Provider Name and Address Organization Details Last Updated DateTime 160.02 cm 41.8 kg/m2 595297. 8 g 97.1 [degF] 70 /min 97 % 97 % 122/78 mm[Hg] Elizabteh Krause MA [facility] 09:22:20 Social History Question Answer Notes LastModified by Organizat ion Details LastModified Time Tobacco Smoking Status Never Smoker Elizabeth Krause MA null, [facility] 09/14/2024 09:18:20 What Is Your Level Of Caffeine Consumption? Moderate Information not available 09/14/2024 In The 14 Days Before Symptom Onset, Have You Had Close Contact With A Laboratory-confir med COVID-19 While That Case Was Ill? No Information not available 09/14/2024 In The 14 Days Before Symptom Onset, Have You Had Close Contact With A Person Who Is Under Investigation For COVID-19 While That Person Was Ill? No Information not available 09/14/2024 Do You Have An Electrostatic Air Filter? No Information not available 09/14/2024 Do You Have A Humidifier? No Information not available 09/14/2024 Do You Have Moisture Problems In Your Home? No Information not available 09/14/2024 What Was The Date Of Your Most Recent Tobacco Screening? 09/14/2024 Information not available 09/14/2024 Do You Have Any Pets? Yes Information not available 09/14/2024 Do You Use Your Seat Belt Or Car Seat Routinely? Yes Information not available 09/14/2024 Do You Have Smoke And Carbon Monoxide Detectors In Your Home? No Information not available 09/14/2024 Are You Passively Exposed To Smoke? No Outside Information no t available 09/14/2024 Do You Use Sunscreen Routinely? No Information not available 09/14/2024 Have You Recently Traveled Abroad? No Information not available 09/14/2024 Sex: Unknown Functional Status Question Answer Note LastModified by Organizat ion Details LastModified Time Do you use any illicit or recreational drugs? No Information not available 09/14/2024 Do you or have you ever used any other forms of tobacco or nicotine? No Information not available 09/14/2024 What is your level of alcohol consumption? None Information not available 09/14/2024 Are you currently employed? Yes Information not available 09/14/2024 Have you been exposed to chemicals or toxins? 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 [id number] Information not available 09/14/2024 Family History Nothing Reported. Medical History No medical history recorded. Gynecological HistoryNo gynecological history recorded. Obstetrics History GPAL:G 0 P 0 0 0 0 Past Encounters Encounter ID Performer Location Encounter Start Date Encounter Closed Date Diagnosis/Indication Diagnosis SNOMED-CT Code Diagnosis ICD10 Code Diagnosis IMO Codes Diagnosis Note [id number] Liyah Virgen NP [facility] [place] [address] [facility] [address] [place] [address] 09/14/2024 08:55:57 09/22/2024 15:08:28 Multiple nodules of lung 686968438 R91.[address] in 1 yearACT-13 CAT-8CT-no gunner 3 nodules-th is was discussed with her in detail-at that time she did have dyspnea and cough-will make sure nodules are resolved as recommende d by radiologis t-[place] in the area where there [place] high contaminat ion from the [place].She is advised to follow-up sooner if she would start having respirator y s/s not accompanie d by URIF/u [address] results Health Concerns Section Related Observation LastModified by Organization Detai ls LastModified Time None Recorded Concern Status LastModified by Organization Details LastModified Time None Recorded Advance Directives Directive None Recorded Payers Insurance Date Sequence Insurance Name Policy Number Policy Estrella Covered Member ID Estrella Member ID Guarantor Name 03/20/2025 2 [facility] [employer] [facility] - DOS PRIOR TO 2025 (MEDICAID REPLACEMENT - HMO) [id number] Sharonda Karlie [id number] Sharonda Karlie 05/17/2024 1 *SELF PAY* Servando Ziegler 03/21/2025 1 [facility] [employer] - DOS ON OR AFTER 2025 (MEDICAID REPLACEMENT - HMO) [id number] Sharonda Karlie [id number] Sharonda Renozo Notes Date Note Type Note Provider Name and Address Organization Details Recorded Time 09/14/2024 text/html Primary care/Referring provider: Dr. Moore Patient is here to go over CXR and Chest CT from 09/08/2024-showing 3 nodules (see CT)-patient had influenza 1 month ago and then another URI a couple weeks later. She had went to [place] [facility] once and was given codeine cough syrup and ran out due to second onset so she went back to [place] [facility] for another visit and was found to have a nodule and was told to go to ER which she did and had CT chest done-there 3 small nodules. She was referred to pulmonology and is here today concerned about the findings. She notes her URI has improved and notes cough is diminishing. No fever or other concerns. Modified [facility] ([facility]) Dyspnea Scale - Grade: 0Other symptoms:Drooling: noDysarthria: noNeck pain: noOdynophagia: noDysphagia: noWeak mastication: noFacial weakness: noNasal speech: noProtruding tongue: noProductive cough: no (dry cough improving)Wheezing : noChest tightness: noOrthopnea: noFrequent throat clearing or swallowing:Palpita tions: noHeartburn: noEdema: no Environmental exposures:Nicotine smoke: noPaint: noDye: noDust mites: noMold: noDamp basement: noWood burning stove: noAnimal dander: noCockroaches: noPollen: yesArsenic: noAsbestos: noBeryllium: noCadmium: noChromium: noCoal smoke: noDiesel fumes: noNickel: noSilica: noSoot: no Liyah Virgen NP [address] [facility] [place] [address], [place], [address], [facility] 09/14/2024 10:00:05 OBGyn Episode No OBEpisode recorded.
--- OUTSIDE RECORDS SUMMARY | 2025-04-19 14:24 | XMS_ITS | Data Portability ---
Author Organization [facility] Address [address] [place] [id number] Assessment Encounter Date Assessment Date Assessment LastModified [...] Follow-up in 1 year or as needed [email or web address] Not available 04/18/2024 07:51:05 Plan of Treatment Reminders Order Date Submit Date Provider Last Modified By Organization Details Last Modified Time Details Appointments None recorded. Lab vaginal pathogens panel, TACHO+probe, vaginal fluid 2023 024 CANDI [facility], [address], [address], [address], 04:11:31 urinalysis , dipstick 2023 024 [email or web address] In-Office Order, Internal Use Only DO Not Attach Compendium DO Not Attach Compendium, Do Not Delete/merge, [id number] 4 07:48:48 test, urine 2023 [email or web address] In-Office Order, Internal Use Only DO Not Attach Compendium DO Not Attach Compendium, Do Not Delete/merge, [id number] 4 07:48:48 pap, IG + reflex HPV if ASC-U 2023 BARNARD [facility], 2022 [address], [address], [address], 4 08:09:17 urinalysis , dipstick 2023 024 [...] 27 mg iron-0.8 mg tablet 2023 024 BARNARD [id number], [address], [place], [place], [id number], 07:50:52 Nexplanon 68 mg subdermal implant 2023 024 [email or web address] Not available 09:37:33 Patient TargetsNo targets recorded. Patient Instructions Encounter Date Encounter Id Patient Instructions Last Modified By Organization Details Last Modified Time 04/17/2024 [id number] Attending Physician Attestation I was physically present [...] 11.3 g/dL 11.1-1 5.9 Not Available [facility] ([facility]) [address] [place], [address], 07/17/2023 07:17:03 07/16/19 24 07/16/[address] hematocrit 33.4 % 34.0-4 6.6 below low normal Not Available [facility] ([facility]) [address] [place], [address], 07/17/2023 07:17:03 07/16/19 24 07/17/2023 ANTIB GREER SCREE N antibody screen Negati ve negati ve Not Available [facility] ([facility]) [address] [place], [address], 07/17/2023 11:13:25 07/16/19 24 07/17/2023 RPR, RFX QN RPR/C ONFIR M TP RPR Non Reacti ve nonrea ctive Not Available [facility] ([facility]) [address] [place], [address], 07/17/2023 11:13:26 07/16/19 24 07/17/2023 HIV AB/P2 4 AG WITH REFLE X HIV Ab/P24 Ag screen Non Reacti ve nonrea ctive HIV Negat aleksandr HIV-1 /HIV- 2 antib odies and HIV-1 p24 antig en were NOT detec ruperto. There is no labor atory evide nce of HIV infec tion. Not Available [facility] ([facility]) [address] [facility], [place], [address], 07/17/2023 11:13:26 07/16/19 24 07/17/2023 GEST. DIABE [...] of >129 mg/dL . Not Available [facility] ([facility]) [address] [facility], [place], [address], 07/17/2023 11:13:28 07/16/19 24 07/16/2023 urina lysis , dipst ick Protein Negati ve Not Available In-Office Order Internal Use Only DO Not Attach Compendium DO Not Attach Compendium, Do Not Delete/merge, [id number] 07/15/2023 15:26:45 07/16/19 24 07/16/2023 urina lysis , dipst ick Glucose Negati ve Not Available In-Office Order Internal Use Only DO Not Attach Compendium DO Not Attach Compendium, Do Not Delete/merge, [id number] 07/15/2023 15:26:45 07/30/1907/30/2023 GESTA MUSA L 3 HOUR GTT-N DDGC note: Commen t Diagn osis of gesta musa l diabe juliann requi res that two or more high thres holds are excee ded. The uli ance test is based on a 100 gm oral gluco se chall enge at 24 - 28 weeks of gesta tion. Not Available [facility] ([facility]) [address] [place], [address], 07/31/2023 11:11:55 07/30/19 24 07/31/2023 GESTA MUSA L 3 HOUR GTT-N DDGC glucose - fasting 83 mg/dL 65-104 Not Available [facility] ([facility]) [address] [place], [address], 07/31/2023 11:11:55 07/30/19 24 07/31/2023 GESTA MUSA L 3 HOUR GTT-N DDGC glucose - 1 hour 164 mg/dL 65-189 Not Available [facility] ([facility]) [address] [place], [address], 07/31/2023 11:11:55 07/30/19 24 07/31/2023 GESTA MUSA L 3 HOUR GTT-N DDGC glucose - 2 hour 140 mg/dL 65-164 Not Available [facility] ([facility]) [address] [place], [address], 07/31/2023 11:11:55 07/30/19 24 07/31/2023 GESTA MUSA L 3 HOUR GTT-N DDGC glucose - 3 hour 55 mg/dL 65-144 below low normal Not Available [facility] ([facility]) [address] [place], [address], 07/31/2023 11:11:55 07/30/1908/01/2023 STREP GP B TACHO [...] n is noted . Not Available [facility] ([facility]) [address] [facility], [place], [address], 08/01/2023 16:08:27 07/30/19 24 07/30/2023 urina lysis , dipst ick Protein Negati ve Not Available In-Office Order Internal Use Only DO Not Attach Compendium DO Not Attach Compendium, Do Not Delete/merge, 07/29/2023 14:12:13 07/30/19 24 07/30/2023 urina lysis , dipst ick Glucose Negati ve Not Available In-Office Order Internal Use Only DO Not Attach Compendium DO Not Attach Compendium, Do Not Delete/merge, [id number] 07/29/2023 14:12:13 08/13/19 24 08/13/2023 urina lysis , dipst ick Protein Negati ve Not Available In-Office Order Internal Use Only DO Not Attach Compendium DO Not Attach Compendium, Do Not Delete/merge, [id number] 08/12/2023 11:43:32 08/13/19 24 08/13/2023 urina lysis , dipst ick Glucose Negati ve Not Available In-Office Order Internal Use Only DO Not Attach Compendium DO Not Attach Compendium, Do Not Delete/merge, [id number] 08/12/2023 11:43:32 08/20/19 24 08/20/2023 urina lysis , dipst ick Protein Negati ve Not Available In-Office Order Internal Use Only DO Not Attach Compendium DO Not Attach Compendium, Do Not Delete/merge, [id number] 08/19/2023 14:08:26 08/20/19 24 08/20/2023 urina lysis , dipst ick Glucose Negati ve Not Available In-Office Order Internal Use Only DO Not Attach Compendium DO Not Attach Compendium, Do Not Delete/merge, [facility] 08/19/2023 14:08:26 08/27/19 24 08/27/2023 urina lysis , dipst ick Protein Negati ve Not Available In-Office Order Internal Use Only DO Not Attach Compendium DO Not Attach Compendium, Do Not Delete/merge, [facility] 08/26/2023 12:01:40 08/27/19 24 08/27/2023 urina lysis , dipst ick Glucose Negati ve Not Available In-Office Order Internal Use Only DO Not Attach Compendium DO Not Attach Compendium, Do Not Delete/merge, [facility] 08/26/2023 12:01:40 09/03/19 24 09/03/2023 urina lysis , dipst ick Protein Negati ve Not Available In-Office Order Internal Use Only DO Not Attach Compendium DO Not Attach Compendium, Do Not Delete/merge, [facility] 09/01/2023 14:26:41 09/03/19 24 09/03/2023 urina lysis , dipst ick Glucose Negati ve Not Available In-Office Order Internal Use Only DO Not Attach Compendium DO Not Attach Compendium, Do Not Delete/merge, [facility] 09/01/2023 14:26:41 02/09/20 24 02/10/2024 HCG,B ETA SUBUN IT, QNT HCG,beta subunit,qnt, serum <1 mIU/m L Femal e (Non- pregn ant) 0 - 5 (Post menop ausal ) 0 - 8 Femal e (Preg nant) Weeks of Gesta tion 3 6 - 71 4 10 - 750 5 395 - 1243 6 284 - 01379 7 4270 -7039 63 8 36288 -6755 71 9 81887 -0944 10 10 48481 -0579 77 12 07513 -2106 12 14 69775 - 64315 15 57957 - 90386 16 8616 - 37557 17 4206 - 43936 18 8068 - 61517 Tree ECLIA metho dolog y Not Available [facility] ([facility]) [address] [facility], [place], [address], 02/10/2024 08:29:33 04/17/20 24 04/18/2024 NUSWA B VAGIN ITIS PLUS (VG+) atopobium vaginae LOW - 0 score Not Available [facility] ([facility]) [address] [facility], [place], [address], 04/19/2024 04:11:31 04/17/20 24 04/18/2024 NUSWA B VAGIN ITIS PLUS (VG+) bvab 2 LOW - 0 score Not Available [facility] ([facility]) [address] [facility], [place], [address], 04/19/2024 04:11:31 04/17/20 24 04/18/2024 NUSWA B [...] prese nce of BV. Not Available [facility] ([facility]) [address] [facility], [place], [address], 04/19/2024 04:11:31 04/17/20 24 04/18/2024 NUSWA B VAGIN ITIS PLUS (VG+) yossi albicans, TACHO NEGATI VE negati ve Not Available [facility] ([facility]) [address] [facility], [place], [address], 04/19/2024 04:11:31 04/17/20 24 04/18/2024 NUSWA B VAGIN ITIS PLUS (VG+) yossi glabrata, TACHO NEGATI VE negati ve Not Available [facility] ([facility]) [address] [facility], [place], [address], 04/19/2024 04:11:31 04/17/20 24 04/19/2024 NUSWA B VAGIN ITIS PLUS (VG+) trich vag by TACHO NEGATI VE negati ve Not Available [facility] ([facility]) [address] [facility], [place], [address], 04/19/2024 04:11:31 04/17/20 24 04/19/2024 NUA B VAGIN ITIS PLUS (VG+) chlamydia trachomatis, TACHO NEGATI VE negati ve Not Available [facility] ([facility]) [address] [facility], [place], [address], 04/19/2024 04:11:31 04/17/20 24 04/19/2024 NUA B VAGIN ITIS PLUS (VG+) neisseria gonorrhoeae, TACHO NEGATI VE negati ve Not Available [facility] ([facility]) [address] [facility], [place], [address], 04/19/2024 04:11:31 04/17/20 24 04/24/2024 IGP,R FX APT HPV ASCU, 16/18 ,45 diagnosis: COMMEN T NEGAT ALEKSANDR FOR INTRA EPITH ELIAL LESIO N OR MALIG JOSELIN . CELLU LAR OVALLES ES ASSOC IATED WITH INFLA MMATI ON ARE PRESE NT. Not Available [facility] ([facility]) [address] [facility], [place], [address], 04/24/2024 08:09:17 04/17/20 24 04/24/2024 IGP,R FX APT HPV ASCU, 16/18 ,45 specimen adequacy: JEREMIAH Donovan Satis facto ry for evalu ation . Endoc ervic al and/o r squam ous metap lasti c cells (endo cervi des compo nent) are prese nt. Not Available [facility] ([facility]) [address] [place], [address], 04/24/2024 08:09:17 04/17/20 24 04/24/2024 IGP,R FX APT HPV ASCU, 16/18 ,45 clinician provided ICD10: JEREMIAH Donovan N89.8 Z12.4 Not Available [facility] ([facility]) [address] [place], [address], 04/24/2024 08:09:17 04/17/20 24 04/24/2024 IGP,R FX APT HPV ASCU, 16/18 ,45 performed by: JEREMIAH ferreira, Gala visor y Cytot nasra donovan (ASCP ) Not Available [facility] ([facility]) [address] [place], [address], 04/24/2024 08:09:17 04/17/20 24 04/24/2024 IGP,R FX APT HPV ASCU, 16/18 ,45 . . Not Available [facility] ([facility]) [address] [place], [address], 04/24/2024 08:09:17 04/17/20 24 04/24/2024 IGP,R FX APT HPV ASCU, 16/18 ,45 note: JEREMIAH Donovan The Pap smear is a scree frnacisco test desig lisa to aid in the [...] ts do occur . Not Available [facility] ([facility]) [address] [facility], [place], [address], 04/24/2024 08:09:17 04/17/20 24 04/24/2024 IGP,R FX APT HPV ASCU, 16/18 ,45 test methodology: COMMEN T This liqui d based ThinP rep(R ) pap test was eli gonzalez with the use of an image guide linh khan. Not Available [facility] ([facility]) [address] [facility], [place], [address], 04/24/2024 08:09:17 04/17/20 24 04/24/2024 IGP,R FX APT HPV ASCU, 16/18 ,45 . COMMEN T The HPV DNA refle x crite esteban were not met with this speci men resul t there fore, no HPV testi ng was perfo rmed. Not Available [facility] ([facility]) [address] [facility], [place], [address], 04/24/2024 08:09:17 04/17/20 24 04/17/2024 pregn ramon test, urine HCG negati ve Not Available In-Office Order Internal Use Only DO Not Attach Compendium DO Not Attach Compendium, Do Not Delete/merge, [id number] 04/17/2024 16:39:56 04/17/20 24 04/17/2024 urina lysis , dipst ick Leukocytes Trace Not Available In-Offi ce Order Internal Use Only DO Not Attach Compendium DO Not Attach Compendium, Do Not Delete/merge, [id number] 04/17/2024 16:39:19 04/17/20 24 04/17/2024 urina lysis , dipst ick Nitrite negati ve Not Available In-Office Order Internal Use Only DO Not Attach Compendium DO Not Attach Compendium, Do Not Delete/merge, [id number] 04/17/2024 16:39:19 04/17/20 24 04/17/2024 urina lysis [...] 04/17/2024 urina lysis , dipst ick Specific [place] 1.030 Not Available In-Off ice Order Internal [...] anato my No observ ation record ed. [facility] Scheduling [address] [facility] [place], [address], 07/23/2023 14:39:09 07/23/19 24 07/23/2023 US, obste tric, mater nal evalu ation + anato my No observ ation record ed. [facility] [address] [facility] [place], [address], 07/26/2023 11:02:59 Result Notes None recorded. Problems Name Problem SNOMED Code Status Onset Date Resolution Date Notes Provider Name and Address Organization Details Recorded Time 21484824 Completed 202209/08/2023 Francy Gu RN null, [place] - [place] 4 12:30:46 Implantatio n of subcutaneou s contracepti ve Active 2023 Lou Rowan MD Attn: Charley lujan,[address] [place], [address], [facility] - [facility] 4 07:50:13 Contracepti on care management Active 2023 Lou Rowan MD Attn: Charley lujan,[address] [place], [address], [facility] - SI 4 07:50:16 Vaginal discharge 644596649 Active 2023 Lou Rowan MD Attn: Charley lujan,[address] [place], [address], [facility] - SI 4 07:51:10 Screening for malignant neoplasm of cervix Active 2023 Lou Rowan MD Attn: Charley lujan,[address] [place], [address], [facility] - SIF 4 07:50:22 Gynecologic examination Active 2023 Lou Rowan MD Attn: Charley lujan,[address] [place], [address], [facility] SI 07:50:23 Problem Notes None recorded. Procedures Surgical History Date Name Laterality Status Provider Name and Address Organization Details Recorded Time 04/17/20 Control Implant Insertion completed Lou Rowan MD Attn: Accounting,[address] [facility], [place], [address], [facility] 04/22/2024 21:21:42 Appendectomy completed Kristyn Riley MA [facility] 01/28/2023 14:21:06 Imaging Results None [...] Address Organization Details Last Updated DateTime 08/13/2023 57335.4622 g Sunny Patel MD Attn: Accounting,[address] [facility], [place], [address], [facility] 08/13/2023 11:44:28 Date Recorded Body height Body mass index (BMI) Systolic And Diastolic Provider Name and Address Organization Details Last Updated DateTime 08/13/2023 165.1 cm 35.5 kg/m2 110/76 mm[Hg] Kimberly Seals Jose [facility] 08/13/2023 11:24:44 Date Recorded Body weight Provider Name an d Address Organization Details Last Updated DateTime 08/20/2023 76377.55230 g Sunny Patel MD Attn: Accounting,[address] [place], [address], [facility] 08/20/2023 11:20:05 Date Recorded Body height Body mass index (BMI) Systolic And Diastolic Provider Name and Address Organization Details Last Updated DateTime 08/20/2023 165.1 cm 35.3 kg/m2 110/74 mm[Hg] Kimberly Seals [facility] 08/20/2023 11:05:07 Date Recorded Body weight Provider Name an d Address Organization Details Last Updated DateTime 08/27/2023 55929.88412 g Sunny Patel MD Attn: Accounting,[address] [place], [address], [facility] 08/27/2023 11:24:50 Date Recorded Body height Body mass index (BMI) Systolic And Diastolic Provider Name and Address Organization Details Last Updated DateTime 08/27/2023 165.1 cm 35.6 kg/m2 98/66 mm[Hg] Kimberly Seals Jose [facility] 08/27/2023 11:08:31 Date Recorded Body weight Provider Name an d Address Organization Details Last Updated DateTime 09/03/2023 26942.60391 g Sunny Patel MD Attn: Accounting,[address] [place], [address], [facility] 09/03/2023 11:36:37 Date Recorded Body height Body mass index (BMI) Systolic And Diastolic Provider Name and Address Organization Details Last Updated DateTime 09/03/2023 165.1 cm 35.9 kg/m2 110/64 mm[Hg] Francy Gu RN [facility] 09/03/2023 11:23:48 Date Recorded Body height Body mass index (BMI) Body weight Heart rate Oxygen saturation Oxygen saturation in Arterial blood by Pulse oximetry Systolic And Diastolic Provider Name and Address Organization Details Last Updated DateTime 165.1 cm 38.4 kg/m2 368897. 84 g 76 /min 97 % 97 % 122/72 mm[Hg] Michelle Alejo MA [place] [facility] 15:53:15 Social History Question Answer Notes LastModified by Organizat ion Details LastModified Time Tobacco Smoking Status Never Smoker Kristyn RileyPRABHU null, [place] - [facility] 01/28/2023 14:20:47 What Was The Date Of [...] Atrial Fibrillation N High Blood Pressure N Kidney or Bladder Problems N Thyroid Problems N GI Problems N Depression N COPD N Blood Clots N Skin Problems N Anemia N Heart Attack (NM) N Anxiety Disorder N Diabetes N Muscle, Joint, or Bone Problems N Seizures/Epilepsy N Acid Reflux (GERD) N Cancer N Stroke N Asthma N Allergies N High Cholesterol N Hepatitis N Liver Disease N Headaches N Heart Failure N Osteoporosis N Gynecological History Statement/Question Response Date of [...] Sunny Patel MD Attn: Accounting,[address] [facility], [place], [address], [facility] - [facility] 07/30/2023 12:12:25 Past Encounters Encounter ID Performer Location Encounter Start Date Encounter Closed Date Diagnosis/Indication Diagnosis SNOMED-CT Code Diagnosis ICD10 Code Diagnosis IMO Codes Diagnosis Note [id number] Chelly Reyes [facility] [place] [address] [facility] [place] [address] 01/28/2023 13:56:28 01/29/2023 09:00:21 test positive 091513809 Z32.01 [id number] MD [place] [address] [facility] [place] [address] 07/09/2023 10:51:05 07/12/2023 09:33:17 Normal [id number] Z34.90 [id number] MD [place] [address] [facility] [place] [address] 07/16/2023 10:05:03 07/19/2023 09:46:35 Normal 40183477 Z34.90 Third trim avel 36500705 Z33.1 [id number] MD [place] [address] OB [address] [facility] [place] [address] 07/30/2023 11:15:38 08/02/2023 09:12:02 Normal 00246031 Z34.90 Administra tion of diphtheria, pertussis, and tetanus vaccine 843178136 Z23 [id number] MD [place] [address] [facility] [place] [address] 08/13/2023 11:12:12 08/16/2023 08:51:47 Normal 36040218 Z34.90 [id number] MD [place] [address] OB [address] [facility] [place] [address] 08/20/2023 10:42:19 08/23/2023 08:38:23 Normal 80399710 Z34.90 [id number] MD [place] [address] OB [address] [facility] [place] [address] 08/27/2023 10:37:44 08/30/2023 09:27:24 Normal 95163725 Z34.90 [id number] MD [place] [address] OB [address] [facility] [address] [place] [address] 09/03/2023 11:03:04 09/06/2023 09:51:35 Normal 81917114 Z34.90 [id number] NIDIA JOSEPH MD [facility] ([facility] [address] [place] [address] 04/17/2024 15:41:13 05/10/2024 12:21:46 Gynecologic examination 07853734 Z01.419 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 Screening for malignant neoplasm of cervix 662738158 Z12.4 Patient is due for pap smear. Vaginal discharge 177756 006 N89.8 DDX BV, yeast, contact irritation . - Test Nuswab vaginitis- Pt counselled on avoiding soaps, douching, and scented laundry detergent; wearing cotton underwear, and encouragin g air flow Contracept ion care management 862066639 Z30.9 Discussed options. Patient desires Nexplanon. Inserted as above. Advised to continue PNV. Implantati on of subcutaneous contraceptive 736226379 Z30.46 Inserted in left arm without complicati on. Will in April 2027. Health Concerns Section Related Observation LastModified by Organization Detai ls LastModified Time None Recorded Concern Status LastModified by Organization Details LastModified Time None Recorded Advance Directives Directive None Recorded Payers Insurance Date Sequence Insurance Name Policy Number Policy Estrella Covered Member ID Estrella Member ID Guarantor Name 07/01/2024 1 [facility] - DOS PRIOR TO 2025 (MEDICAID REPLACEMENT - HMO) [id number] Sharonda Ziegler [id number] Sharonda Ziegler 07/09/2023 SLIDING FEE SCHEDULE - DISCOUNT Sharonda Ziegler 05/15/2024 1 [place] [employer] Sharonda Ziegler [id number] Sharonda Ziegler 08/25/2023 1 MEDICAID - [facility]END[facility] [id number] Sharonda Ziegler 07/30/2023 2 *SELF PAY* Da yuri Ziegler Notes Date Note Type Note Provider Name [...] healthy 28 y/o presenting for routine consumer affairs manager exam and Nexplanon placement. Had baby 09/06/23, got depo next dayNo periods since then Cervical cancer screening - due todaySTI screening - neg in AD 7, PHQ 2 - 0 on 04/17/24Intimate partner violence - no concerns NIDIA JOSEPH MD Attn: Accounting,[address] [place], [address], [place] [facility] 04/23/2024 21:55:57 OBGyn Episode Ob Episode Information Episode Created Date Number of Fetuses Patient Bloodtype Patient rh Status Prepregnancy Weight lbs Domestic Partner Domestic Partner Phone Father Name It Support Analyst Status 04/17/20 24 1 CLOSED Fetus Data First Name Last Name Admitted to NICU Weight (g) Sex Living Outcome Pediatric Complications Fetus ID Race Codes Race Delivery Type F Full Term 02385 Senthil Calculation Initial Senthil Date Initial Exam [...] Domestic Partner Domestic Partner Phone Father Name It Support Analyst Status 04/17/20 24 1 CLOSED Fetus Data First Name Last Name Admitted to NICU Weight (g) Sex Living Outcome Pediatric Complications Fetus ID Race Codes Race Delivery Type F Full Term [id number] Senthil Calculation Initial Senthil Date Initial Exam [...] Domestic Partner Domestic Partner Phone Father Name It Support Analyst Status 01/29/20 23 1 O Negative CLOSED Fetus Data First Name Last Name Admitted to NICU Weight (g) Sex Living Outcome Pediatric Complications Fetus ID Race Codes Race Delivery Type Yves Ziegler 3486.98 85 F true Full Term 49290 2106-3 White Vaginal Senthil Calculation Initial Senthil [...] Days Gestation 0 07/09/2023 09/10/19 24 0 Pre-fady Flowsheet Flowsheet Date 01/28/2023 Childs Score Blood Edema Fundus Height Fundus Units Glucose Ketones Leukocytes Nitrite Labor Signs Protein Cervic Dilation Cervic Effacement Cervic Station none Type Weight in lbs Pre/Post Dialysis Refused Weight 215.129798746233 BP Diastolic BP Location Tested BP Systolic [...] in lbs Pre/Post Dialysis Refused With clothes 208.87601290560 BP Diastolic BP Location Tested BP Systolic BP Type 76 122 sitting Fetus Heart Rate Present A 145 Present Fetus Movement A Yes Comments 3rd baby, 2 vaginal deliveri es in pastthis is girl #3needs sugar test and rhogam ; back in a week for thoseonly had an US in Kimber[place], appears to have confirmed dateswill get US after next visit Flowsheet Date 07/16/2023 Childs Score Blood Edema Fundus Height Fundus Units Glucose Ketones Leukocytes Nitrite Labor Signs Protein Cervic Dilation Cervic Effacement Cervic Station none 30 cm none neg Type Weight in lbs Pre/Post Dialysis Refused With clothes 208.459940290668 BP Diastolic BP Location Tested BP Systolic [...] in lbs Pre/Post Dialysis Refused With clothes 208.406789042307 BP Diastolic BP Location Tested BP Systolic [...] in lbs Pre/Post Dialysis Refused With clothes 213.458229451065 BP Diastolic BP Location Tested BP Systolic [...] in lbs Pre/Post Dialysis Refused With clothes 212.85480174164 BP Diastolic BP Location Tested BP Systolic [...] in lbs Pre/Post Dialysis Refused With clothes 214.300998260018 BP Diastolic BP Location Tested BP Systolic [...] Weight in lbs Pre/Post Dialysis Refused Weight [id number] BP Diastolic BP Location Tested BP Systolic [...] Estim ated Date of Delivery false Thalassemia (Monegasque, Slovenian, Mediterranean, Or Background): MCV < 80 false Neural Tube Defect (Meningomyelocele, Spina Bifi da, Or Anencephaly) false Congenital Heart Defect false Down Syndrome false Teto-Sachs (eg, Zoroastrian, Cajun, Serbian-Terrebonne) f alse Bossman Disease false Sickle Cell Disease Or Trait () false Hemophilia Or Other Blood Disorders false Muscular Dystrophy false Cystic Fibrosis false Berks's Chorea false Mental Retardation/Autism false If Yes, [...]
[2025-04-19 15:16] LABS: Hematocrit 40.4 % (37.0-47.0); Hemoglobin 13.2 g/dL (12.0-15.0); Immature Granulocyte Percent A 0.4 % (0-0.5); Lymphocytes Absolute Auto 2.10 K/mm3 (0.9-3.2); Mean Corpuscular HGB Conc 32.7 g/dl (32-36); Mean Corpuscular Hemoglobin 29.2 pg (26-34); Mean Corpuscular Volume 89.4 fl (80-100); Nucleated Red Blood Cells Absolute Auto 0.000 K/mm3 (0.0-0.012); Nucleated Red Blood Cells Perc 0.0 % (0.0-0.2); Platelet Count Result 329 k/mm3 (150-375); Red Blood Count 4.52 M/mm3 (4.2-5.4); White Blood Count 8.1 K/mm3 (4.5-10.0)
[2025-04-19 15:27] LABS: Alanine Aminotransferase 16 U/L (6-35); Albumin Level 4.3 g/dL (3.5-5.1); Alkaline Phosphatase 95 U/L (38-126); Anion Gap 4 mmol/L (4-12); Aspartate Amino Transferase 20 U/L (14-36); Bilirubin,Total 0.5 mg/dL (0.2-1.3); Blood Urea Nitrogen 12 mg/dL (7-17); Calcium 8.4 mg/dL (8.4-10.2); Carbon Dioxide 25 mmol/L (22-30); Chloride 105 mmol/L (98-107); Estimated CRCL calculation 131 ml/min; Estimated Glomerular Filt Rate > 60; Glucose 95 mg/dL (65-110); Potassium 4.5 mmol/L (3.4-5.0); Sodium 134 mmol/L (137-145); Total Protein 7.6 g/dL (6.3-8.2)
--- NOTE | 2025-04-19 16:03 | ED_ITS ---
HPI - Skin/Abscess/Foreign Bdy General Chief complaint: Skin/Abscess/Foreign Body Stated complaint: itchiness Time Seen by Provider: 04/19/25 13:44 History of Present Illness HPI narrative: Patient is a 30-year-old female who presents ER with itching. Intermittent in and across her entire body but most notable on her forearms, back legs and back. Worse at night. No fevers or chills or sweats. It is not affected by having a shower. There is a dog but is not in the house. She does not have a rash pustules or vesicles. She does not use free and clear detergent. No home medications. No known alleviating factors. Related Data Allergies Allergy/AdvReac Type Severity Reaction Status Date / Time No Known Allergies Allergy Verified 04/19/25 12:39 Review of Systems 2 Review of Systems: All systems reviewed & are unremarkable except as noted in HPI and below Constitutional: Constitutional: Reports no additional constitutional complaints Cardiovascular: Cardiovascular: Reports no additional cardiovascular complaints Gastrointestinal: Gastrointestinal: Reports no additional gastrointestinal complaints Genitourinary: Genitourinary: Reports no additional female genitourinary complaints Musculoskeletal: Musculoskeletal: Reports no additional musculoskeletal complaints [facility] Surgical History Surgical History Hx of appendectomy Family History Family History Father No problems noted. Sibling No problems noted. Social History Social History Living arrangements: with family Exam 2 Narrative: GENERAL: Well-appearing, well-nourished, and in no acute distress. HEAD: Normocephalic, atraumatic. ENT: Mucous membranes moist. NECK: Supple. EXTREMITIES: Normal range of motion. No edema. SKIN: Warm, dry, no rash. NEURO: Alert and oriented x3. PSYCH: Normal mood and affect. Course Course Emergency Course: Recommend switching to freeing clear detergents/fabric softener. Normal labs. Vital Signs Vital signs: Vital Signs Temperature 97.6 F 04/19/25 12:35 Pulse Rate 72 04/19/25 12:35 Respiratory Rate 16 04/19/25 12:35 Blood Pressure 117/58 L 04/19/25 12:35 Pulse Oximetry 99 04/19/25 12:35 Oxygen Delivery Room Air 04/19/25 12:35 Temperature 97.6 F 04/19/25 12:35 Pulse Rate 72 04/19/25 12:35 Respiratory Rate 16 04/19/25 12:35 Blood Pressure 117/58 L 04/19/25 12:35 Pulse Oximetry 99 04/19/25 12:35 Oxygen Delivery Room Air 04/19/25 12:35 MDM - Skin/Abscess/Foreign Bdy Differential Diagnosis Differential diagnosis: Likely urticaria, herpes zoster, cellulitis, insect bites and other ( Cholestasis, polycythemia, contact dermatitis) Lab Data 04/19/25 15:08 04/19/25 15:08 Labs: Lab Results 04/19/25 Range/Units 15:08 WBC 8.1 (4.5-10.0) K/mm3 RBC 4.52 (4.2-5.4) M/mm3 Hgb 13.2 (12.0-15.0) g/dL Hct 40.4 (37.0-47.0) % MCV 89.4 (80-100) fl MCH 29.2 (26-34) pg MCHC 32.7 (32-36) g/dl RDW 12.2 (11.5-14.5) % Plt Count 329 (150-375) k/mm3 MPV 8.7 (7.4-10.4) fl Immature Gran % (Auto) 0.4 (0-0.5) % Neut % (Auto) 63.4 (45.5-73.1) % Lymph % (Auto) 25.9 (18.3-44.2) % [place] % (Auto) 7.8 (2.6-8.5) % Eos % (Auto) 1.8 (0-4.4) % Baso % (Auto) 0.7 (0.2-1.2) % Lymph # (Auto) 2.10 (0.9-3.2) K/mm3 [place] # (Auto) 0.6 (0.1-0.6) K/mm3 Eos # (Auto) 0.2 (0-0.3) K/mm3 Baso # (Auto) 0.1 (0.0-0.1) K/mm3 Abs Immat Gran (auto) 0.03 (0.00-0.031) K/mm3 Absolute Neuts (auto) 5.1 (1.3-6.7) K/mm3 Absolute Nucleated RBC 0.000 (0.0-0.012) K/mm3 Nucleated RBC % 0.0 (0.0-0.2) % Sodium 134 L (137-145) mmol/L Potassium 4.5 (3.4-5.0) mmol/L Chloride 105 (98-107) mmol/L Carbon Dioxide 25 (22-30) mmol/L Anion Gap 4 (4-12) mmol/L BUN 12 (7-17) mg/dL Creatinine 0.66 L (0.7-1.0) mg/dL Estim Creat Clear Calc 131 ml/min Estimated GFR > 60 (59 - ) Glucose 95 (65-110) mg/dL Calcium 8.4 (8.4-10.2) mg/dL Total Bilirubin 0.5 (0.2-1.3) mg/dL AST 20 (14-36) U/L ALT 16 (6-35) U/L Alkaline Phosphatase 95 (38-126) U/L Total Protein 7.6 (6.3-8.2) g/dL Albumin 4.3 (3.5-5.1) g/dL Discharge Plan Discharge Clinical Impression: Chronic pruritus Patient Disposition: Home Condition: Stable Instructions: Itchy Skin (ED) Additional Instructions: return the ER if you have any rash, you have fever over 100.4? F, or you have additional concerns. Patient Language: Nauruan Prescriptions: New cetirizine [Zyrtec] 10 mg tablet 10 mg PO DAILY Qty: 14 0RF No Action benzonatate 100 mg capsule 100 mg PO TID Qty: 14 0RF methylprednisolone [Medrol (Smooth)] 4 mg tablets,dose pack See Rx Instructions .ROUTE .COMPLEX Qty: 21 0RF Rx Instructions: for 6 days albuterol sulfate [Ventolin HFA] 90 mcg/actuation HFA aerosol inhaler 1 inh inhalation QID PRN (Reason: shortness of breath or wheezing) Qty: 6.7 0RF ondansetron 4 mg tablet,disintegrating 4 mg PO Q8H PRN (Reason: nausea and vomiting) Qty: 7 0RF famotidine [Pepcid] 20 mg tablet 20 mg PO BID Qty: 20 0RF benzonatate 100 mg capsule 100 mg PO TID Qty: 20 0RF ondansetron 4 mg tablet,disintegrating 4 mg PO Q8H Qty: 15 0RF methylprednisolone [Medrol (Smooth)] 4 mg tablets,dose pack See Rx Instructions .ROUTE .COMPLEX Qty: 21 0RF Rx Instructions: for 6 days Claritin 10 mg tablet,chewable 10 mg PO DAILY Qty: 14 0RF ibuprofen 600 mg tablet 600 mg PO TID PRN (Reason: fever or pain) Qty: 14 0RF fluticasone propionate [Flonase Allergy Relief] 50 mcg/actuation spray,suspension 1 spray intranasal BID Qty: 16 0RF Rx Instructions: administer into each nostril codeine-guaifenesin 10-100 mg/5 mL liquid 2.5 ml PO Q6H Qty: 120 0RF Follow-up/Referrals: PHYSICIAN,DIPLOMATIC INTERPRETER/TRANSLATOR [Primary Care Provider, Internal Medicine] Lm Moore MD [Physician, Family Practice] - 1 Week
== END 2025-04-19 16:30 | disposition home or self-care (01) ==
PROVIDERS: Emergency Provider Emergency Medicine
DX: L29.9 Pruritus, unspecified (principal)
CPT/HCPCS: 36415; 80053; 85025; 99283

== ENCOUNTER 2025-04-21 14:32 | Emergency (ER) | payer BC, SELFPAY ==
--- NOTE | ~2025-04-21 | XR_ITS ---
EXAMINATION: XR chest 2V, 04/21/2025 15:50 [place] HISTORY: cough COMPARISON: No comparisons available. Technique: 2 views obtained. Findings: The lungs are clear, no effusion. No pneumothorax. Heart is normal size. Mediastinal and hilar contours are within normal limits. Bony thorax no acute abnormality. Impression: No acute cardiopulmonary abnormality. Reviewed, dictated and finalized at location [facility] [place] Impression: No acute cardiopulmonary abnormality.
[2025-04-21 14:43] VITALS: BP 121/75; PULSE 77; RESP 20; TEMP 36.4; O2SAT 99
[2025-04-21 14:46] VITALS: O2SAT 99
--- NOTE | 2025-04-21 15:19 | ED.URI ---
HPI - URI/Sore Throat General Chief Complaint: Upper Respiratory Infection Stated Complaint: runny nose and cough, eyes are hot Time Seen by Provider: 04/21/25 15:15 Source: patient Mode of arrival: ambulatory Limitations: no limitations History of Present Illness HPI Narrative: 29 years old white female came to the ED with headache, runny nose, nasal congestion, postnasal discharge, coughing and sore throat started 2 days ago patient's daughter had similar symptom few days ago Related Data Allergies Allergy/AdvReac Type Severity Reaction Status Date / Time No Known Allergies Allergy Verified 04/21/25 14:46 Review of Systems Review of Systems: All systems reviewed & are unremarkable except as noted in HPI and below PMFSH Surgical History Surgical History Hx of appendectomy Family History Family History Father No problems noted. Sibling No problems noted. Social History Social History Living arrangements: with family Exam Narrative: General appearance: Well-developed, well-nourished Skin: Normal color Head: Normocephalic, nontraumatic Eyes: Clear conjunctiva ENT: Or pharyngeal erythema Neck: Supple, nontender Chest and respiratory: Airway patent, no respiratory distress, no accessory muscle use Heart: Regular rate/rhythm Abdomen: Soft, nontender, no organomegaly, quiet bowel sounds Vascular: Normal peripheral pulses, normal capillary refill. Musculoskeletal: Normal range of motion, nontender back Neurologic: Alert and oriented ?3, SOCIAL SERVICES TECHNICIAN is normal as tested, no gross motor deficit Course Vital Signs Vital signs: Vital Signs Temperature 36.4 C 04/21/25 14:43 Pulse Rate 77 04/21/25 14:43 Respiratory Rate 20 04/21/25 14:43 Blood Pressure 121/75 04/21/25 14:43 Pulse Oximetry 99 04/21/25 14:43 Oxygen Delivery Room Air 04/21/25 14:43 Temperature 36.4 C 04/21/25 14:43 Pulse Rate 77 04/21/25 14:43 Respiratory Rate 20 04/21/25 14:43 Blood Pressure 121/75 04/21/25 14:43 Pulse Oximetry 99 04/21/25 14:46 Oxygen Delivery Room Air 04/21/25 14:46 MDM - URI/Sore Throat MDM Narrative Medical decision making narrative: Patient came with upper respiratory viral infection like symptoms and sore throat Patient tested positive for strep, Patient tested negative for COVID flu and RSV. Patient eloped prior lab results. I did send a prescription of Z-Smooth to patient pharmacy and asked the nurse to call the patient let her know that she is positive for strep and have a prescription to pick Differential Diagnosis Differential diagnosis: Likely other (As above) Lab Data Attestation: I reviewed the patient's lab results. Labs: Lab Results 04/21/25 04/21/25 Range/Units 16:15 16:28 Influenza A (RT-PCR) Negative (Negative) Influenza B (RT-PCR) Negative (Negative) RSV (RT-PCR) Negative (Negative) SARS-CoV-2 RNA (RT-PCR) Negative (Negative) Group A Strep (PCR) Detected A (Negative) Discharge Plan Discharge Clinical Impression: Strep throat Patient Disposition: Elopement After Seen by Prov Instructions: Strep Throat (ED) Additional Instructions: Return if symptoms are worsening , call your family physician for appointment, take Tylenol, ibuprofen as as needed for aches and pain, continue home medications. Patient Language: East Timorese Prescriptions: New azithromycin [Zithromax Z-Smooth] 250 mg tablet 250 mg PO DAILY PRN (Reason: Strep throat) 5 Days Qty: 6 0RF No Action benzonatate 100 mg capsule 100 mg PO TID Qty: 14 0RF methylprednisolone [Medrol (Smooth)] 4 mg tablets,dose pack See Rx Instructions .ROUTE .COMPLEX Qty: 21 0RF Rx Instructions: for 6 days albuterol sulfate [Ventolin HFA] 90 mcg/actuation HFA aerosol inhaler 1 inh inhalation QID PRN (Reason: shortness of breath or wheezing) Qty: 6.7 0RF ondansetron 4 mg tablet,disintegrating 4 mg PO Q8H PRN (Reason: nausea and vomiting) Qty: 7 0RF famotidine [Pepcid] 20 mg tablet 20 mg PO BID Qty: 20 0RF cetirizine [Zyrtec] 10 mg tablet 10 mg PO DAILY Qty: 14 0RF benzonatate 100 mg capsule 100 mg PO TID Qty: 20 0RF ondansetron 4 mg tablet,disintegrating 4 mg PO Q8H Qty: 15 0RF methylprednisolone [Medrol (Smooth)] 4 mg tablets,dose pack See Rx Instructions .ROUTE .COMPLEX Qty: 21 0RF Rx Instructions: for 6 days Claritin 10 mg tablet,chewable 10 mg PO DAILY Qty: 14 0RF ibuprofen 600 mg tablet 600 mg PO TID PRN (Reason: fever or pain) Qty: 14 0RF fluticasone propionate [Flonase Allergy Relief] 50 mcg/actuation spray,suspension 1 spray intranasal BID Qty: 16 0RF Rx Instructions: administer into each nostril codeine-guaifenesin 10-100 mg/5 mL liquid 2.5 ml PO Q6H Qty: 120 0RF Follow-up/Referrals: PHYSICIAN,DRYING ROOM ATTENDANT [Primary Care Provider, Internal Medicine]
[2025-04-21 16:56] LABS: Strep Group A RT-PCR DETECTED (Negative)
[2025-04-21 17:01] LABS: Influenza A QL RT-PCR Negative (Negative); Influenza B QL RT-PCR Negative (Negative); RSV RNA, RT-PCR Negative (Negative); SARS-CoV-2 RNA PCR Negative (Negative)
== END 2025-04-21 17:47 | disposition left against medical advice (07) ==
PROVIDERS: Emergency Provider Emergency Medicine
DX: J02.0 Streptococcal pharyngitis (principal); Z20.822 Contact with and (suspected) exposure to COVID-19
CPT/HCPCS: 71046; 87637; 87651; 99283